=== PATIENT | female | born 1985 | race Caucasian/White ===

== ENCOUNTER → 2020-07-07 13:56 | Outpatient (REF) | payer OTHER, SELFPAY | LOC: HO.SL 13:56 | PROVIDERS: PCP Internal Medicine; Visit Provider Internal Medicine | DX: G47.10 Hypersomnia, unspecified (principal); R06.83 Snoring; R40.0 Somnolence | CPT/HCPCS: 95806 ==

== ENCOUNTER → 2020-08-19 07:55 | Outpatient (BNVA) | payer OTHER, SELFPAY | PROVIDERS: PCP Internal Medicine; Referring Provider Internal Medicine; Visit Provider Internal Medicine | DX: Z76.89 Persons encountering health services in other specified circumstances (principal) ==

== ENCOUNTER 2020-08-21 09:17 | Outpatient (REF) | payer OTHER, SELFPAY ==
[2020-08-21 10:38] LABS: Alanine Aminotransferase 30 U/L (0-31); Albumin Level 4.2 g/dL (3.5-5.0); Alkaline Phosphatase 65 U/L (39-117); Anion Gap 16 (12-20); Aspartate Amino Transferase 26 U/L (5-31); Bilirubin Total 0.8 mg/dL (0.0-1.0); Blood Urea Nitrogen 17 mg/dL (9-16); Calcium 9.1 mg/dL (8.4-10.2); Carbon Dioxide 25 mmol/L (22-29); Chloride 105 mmol/L (96-108); Cholesterol 194 mg/dL; Estimated Glomerular Filt Rate > 60; Glucose Fasting 182 mg/dL (60-99); HDL Cholesterol 36 mg/dL; LDL Cholesterol Calculated 112 mg/dl; Potassium 4.5 mmol/l (3.3-5.1); Sodium 141 mmol/L (135-145); Total Protein 7.8 g/dL (6.5-8.0); Triglycerides 233 mg/dL
== END 2020-08-21 09:18 | disposition home or self-care (01) ==
LOC: HO.LAB 09:17
PROVIDERS: Absent Provider Internal Medicine; PCP Internal Medicine; Visit Provider Internal Medicine
DX: E11.9 Type 2 diabetes mellitus without complications (principal)
CPT/HCPCS: 36415; 80053; 80061

== ENCOUNTER 2020-08-25 08:28 | Outpatient (REF) | payer OTHER, SELFPAY ==
[2020-08-25 09:42] LABS: Estimated Average Glucose 174 mg/dL; Hemoglobin A1c % 7.7 %
[2020-08-25 09:50] LABS: Alanine Aminotransferase 38 U/L (0-31); Albumin Level 4.2 g/dL (3.5-5.0); Alkaline Phosphatase 60 U/L (39-117); Anion Gap 14 (12-20); Aspartate Amino Transferase 32 U/L (5-31); Bilirubin Total 0.5 mg/dL (0.0-1.0); Blood Urea Nitrogen 15 mg/dL (9-16); Calcium 9.5 mg/dL (8.4-10.2); Carbon Dioxide 28 mmol/L (22-29); Chloride 100 mmol/L (96-108); Estimated Glomerular Filt Rate > 60; Glucose Random 177 mg/dL (60-115); Potassium 4.7 mmol/l (3.3-5.1); Sodium 137 mmol/L (135-145); Total Protein 8.1 g/dL (6.5-8.0)
[2020-08-25 10:07] LABS: Free T4 (Free Thyroxine) 0.92 ng/dL (0.71-1.85); HCG Quantitative < 2 mIU/mL; Thyroid Stimulating Hormone 3.33 uIU/mL (0.32-4.0); Vitamin D 25-OH Total 7.9 ng/mL (>30)
[2020-08-26 11:27] LABS: DHEA Sulfate 88 mcg/dL (23-266); Sex Hormone Binding Globulin 47 nmol/L (17-124)
[2020-08-26 20:08] LABS: Follicle Stimulating Hormone 6.3 mIU/mL; Lutenizing Hormone 19.1 mIU/mL; Prolactin 12.7 ng/mL
[2020-08-26 23:18] LABS: Adrenocorticotropic Hormone 25 pg/mL (6-50)
[2020-08-28 21:37] LABS: IGF-1 (Somatomedin C) 80 ng/mL (53-331); IGF-1 Z Score (Female) -1.2 SD (-2.0 - +2.0)
[2020-08-28 21:58] LABS: Estradiol Ultra Sensitive 221 pg/mL
[2020-08-29 10:33] LABS: Testosterone, Free 5.8 pg/mL (0.1-6.4); Testosterone, Total 48 ng/dL (2-45)
[2020-08-30 00:57] LABS: Androstenedione 182 ng/dL
[2020-09-03 15:48] LABS: Estradiol Free 4.12 pg/mL; Estradiol, Ultrasensitive 219 pg/mL
== END 2020-08-25 08:29 | disposition home or self-care (01) ==
LOC: HO.LAB 08:28
PROVIDERS: PCP Internal Medicine; Visit Provider Internal Medicine
DX: N91.2 Amenorrhea, unspecified (principal); E55.9 Vitamin D deficiency, unspecified
CPT/HCPCS: 36415; 80053; 82024; 82157; 82306; 82533; 82627; 82670; 83001; 83002; 83036; 83498; 84146; 84270; 84305; 84402; 84403; 84439; 84443; 84702

== ENCOUNTER → 2020-09-03 13:54 | Outpatient (BNVA) | payer OTHER, SELFPAY | PROVIDERS: PCP Internal Medicine; Visit Provider Physician Assistant ==

== ENCOUNTER → 2020-09-09 08:18 | Outpatient (BNVA) | payer OTHER, SELFPAY | PROVIDERS: PCP Internal Medicine; Visit Provider Surgery | DX: Z76.89 Persons encountering health services in other specified circumstances (principal) ==

== ENCOUNTER 2020-09-14 08:51 | Outpatient (REF) | payer OTHER, SELFPAY ==
--- NOTE | 2020-09-14 09:12 | ECG_ITS ---
Test Reason : TYPE II DM Blood Pressure : / mmHG Vent. Rate : 056 BPM Atrial Rate : 056 BPM P-R Int : 116 ms QRS Dur : 090 ms QT Int : 436 ms P-R-T Axes : 009 010 013 degrees QTc Int : 420 ms Sinus bradycardia Otherwise normal ECG No previous ECGs available Referred By: Omar Castillo Electronically Signed By:KAREN GODOY MD
--- NOTE | 2020-09-14 09:34 | XR_ITS ---
EXAMINATION: XR CHEST CLINICAL INFORMATION: Diabetes COMPARISON: None TECHNIQUE: 2 views of the chest were obtained. FINDINGS: No significant abnormality is noted involving the heart, lungs, mediastinum, bony thorax or soft tissues. XR/XR chest 2V IMPRESSION: Unremarkable examination.
[2020-09-14 09:36] LABS: MANUAL DIFF FLAG NO
[2020-09-14 09:41] LABS: Basophils Percent Auto 0.5 % (0-2); Eosinophils Absolute Auto 0.3 X10*3/uL (0.0-0.4); Eosinophils Percent Auto 3.9 % (0-4); Hematocrit 42.9 % (37-47); Hemoglobin 15.1 g/dl (12.0-16.0); Imm Gran Abs Auto 0.01 X10*3/uL (0.00-0.03); Imm Gran Pct Auto 0.2 % (0.0-0.4); Lymphocytes Absolute Auto 2.6 X10*3/uL (1.2-4.9); Lymphocytes Percent Auto 39.9 % (20-40); Mean Corpuscular HGB Conc 35.2 g/dl (31.0-35.0); Mean Corpuscular Hemoglobin 31.7 pg (27.0-33.0); Mean Corpuscular Volume 89.9 fL (80-98); Monocytes Absolute Auto 0.3 X10*3/uL (0.1-1.2); Monocytes Percent Auto 4.2 % (2-11); Neutrophils Absolute Auto 3.4 X10*3/uL (2.0-8.3); Neutrophils Percent Auto 51.3 % (45-73); Platelet Count 315 X10*3/uL (160-400); Red Blood Count 4.77 X10*6/uL (4.20-5.50); Red Cell Distribution Width 12.5 % (11.0-16.0); White Blood Count 6.6 X10*3/uL (4.8-10.8)
[2020-09-14 10:03] LABS: Alanine Aminotransferase 31 U/L (0-31); Albumin Level 4.1 g/dL (3.5-5.0); Alkaline Phosphatase 63 U/L (39-117); Anion Gap 12 (12-20); Aspartate Amino Transferase 31 U/L (5-31); Bilirubin Total 0.6 mg/dL (0.0-1.0); Blood Urea Nitrogen 15 mg/dL (9-16); Calcium 9.3 mg/dL (8.4-10.2); Carbon Dioxide 25 mmol/L (22-29); Chloride 105 mmol/L (96-108); Cholesterol 191 mg/dL; Estimated Glomerular Filt Rate > 60; Glucose Random 154 mg/dL (60-115); HDL Cholesterol 38 mg/dL; LDL Cholesterol Calculated 109 mg/dl; Potassium 4.4 mmol/L (3.3-5.1); Sodium 138 mmol/L (135-145); Total Protein 7.9 g/dL (6.5-8.0); Triglycerides 220 mg/dL
[2020-09-14 10:26] LABS: Ferritin 60 ng/mL (10-122); TSH reflex Free T4 2.06 uIU/mL (0.32-4.0)
[2020-09-14 11:43] LABS: Estimated Average Glucose 163 mg/dL; Hemoglobin A1c % 7.3 %
[2020-09-14 18:10] LABS: Folate 5.3 ng/mL (> or = 4.0); Vitamin B12 495 pg/mL (200-900)
[2020-09-15 10:27] LABS: H Pylori Breath Test DETECTED (NOT DETECTED)
[2020-09-15 15:32] LABS: Calcium (PTHI) 9.5 mg/dL (8.6-10.2); PTHI 58 pg/mL (14-64)
[2020-09-15 18:42] LABS: Insulin Level Total 21.2 uIU/mL
[2020-09-16 22:37] LABS: Zinc 94 mcg/dL (60-130)
[2020-09-18 03:43] LABS: Vitamin A 28 mcg/dL (38-98)
[2020-09-18 11:38] LABS: Vitamin B1 <6 nmol/L (8-30)
== END 2020-09-14 08:52 | disposition home or self-care (01) ==
LOC: HO.LAB 08:51
PROVIDERS: PCP Internal Medicine; Visit Provider Surgery
DX: E11.9 Type 2 diabetes mellitus without complications (principal); E28.2 Polycystic ovarian syndrome; R61 Generalized hyperhidrosis; N91.2 Amenorrhea, unspecified; L68.0 Hirsutism; E66.9 Obesity, unspecified; Z68.36 Body mass index [BMI] 36.0-36.9, adult
CPT/HCPCS: 36415; 71046; 80053; 80061; 82306; 82607; 82728; 82746; 83013; 83036; 83525; 83970; 84425; 84443; 84590; 84630; 85025; 86140; 93005; 99211

== ENCOUNTER → 2020-10-07 08:13 | Outpatient (BNVA) | payer OTHER, SELFPAY | PROVIDERS: PCP Internal Medicine; Visit Provider Surgery ==

== ENCOUNTER → 2020-10-12 07:39 | Outpatient (BNVA) | payer OTHER, SELFPAY | PROVIDERS: PCP Internal Medicine; Visit Provider Internal Medicine ==

== ENCOUNTER 2020-10-13 06:24 | Outpatient (REF) | payer OTHER, SELFPAY ==
--- NOTE | ~2020-10-13 | FL_ITS ---
EXAMINATION: XR GI SERIES CLINICAL INFORMATION: Obesity. Pre-op evaluation. COMPARISON: None TECHNIQUE: Routine upper GI air-contrast study was performed. FINDINGS: Following oral administration of thick barium and effervescent granules, there is normal propagation of bolus from the oral cavity through the pharynx, esophagus into stomach without any evidence of obstruction, narrowing, or stricture. There is mucosal hypertrophy involving the oropharynx likely secondary to inflammatory process. Correlate clinically. On placing the patient supine and prone lying, the course, caliber and peristalsis of the stomach, duodenal bulb and the sweep is normal. There is a large gastroesophageal reflux without hiatal hernia. FLUOROSCOPY TIME: 1.9 minutes DOSE AREA PRODUCT: 37.602 uGy-m2 (microgray-meter squared) FL/FL upper GI series IMPRESSION: 1. Large gastroesophageal reflux without hiatal hernia. 2. Thick mucosal folds in the oropharynx, question inflammatory process.
--- NOTE | ~2020-10-13 | US_ITS ---
EXAMINATION: US COMPLETE ABDOMEN WITH LIVER ELASTOGRAPHY CLINICAL INFORMATION: Diabetes COMPARISON: None. TECHNIQUE: Real-time imaging of the abdominal viscera. Noninvasive ultrasound liver fibrosis assessment is performed using Kofi ElastPQ point quantification shear wave elastography (pSWE) with a C5-2 MHz transducer. Multiple elastography samples are obtained. FINDINGS: PANCREAS: Not visualized due to bowel gas. ABDOMINAL AORTA: Proximal and mid abdominal aorta are not well visualized due to bowel gas. The distal abdominal aorta is normal in caliber. INFERIOR VENA CAVA: Visualized portions are normal. LIVER: Liver echotexture is increased. The liver is normal in contour. The liver is normal in size. There is a hypoechoic area adjacent to the gallbladder, a characteristic location of focal fatty sparing. No other focal lesion or intrahepatic biliary duct dilatation. The right lobe measures 16 cm in length. The left lobe measures 9 cm in length. Portal flow is normal/hepatopedal Shear wave liver elastography median stiffness is 1.17 m/s (reference: normal median stiffness is 1.3 m/s or less). IQR/median stiffness to assess sampling precision is 0.15 (reference: good quality data set is IQR/median stiffness of 0.15 or less). GALLBLADDER: Normal. The gallbladder is physiologically distended without evidence of stones, sludge, polyps, wall thickening or pericholecystic fluid. COMMON BILE DUCT: Normal in caliber measuring 0.5 cm in diameter. RIGHT KIDNEY: Normal. No hydronephrosis. No renal calculi or focal parenchymal lesions. The kidney measures 12.6 cm in maximum dimension. LEFT KIDNEY: Normal. No hydronephrosis. No renal calculi or focal parenchymal lesions. The kidney measures 12.6 cm in maximum dimension. SPLEEN: Normal. The spleen measures 11.7 cm in maximum dimension. FREE FLUID: None. US/US abdomen comp w elastography IMPRESSION: 1. Impression: Echogenic liver suggestive of fatty infiltration. Limited visualization of the pancreas and aorta. 2. Liver elastography: Normal. REFERENCE: Society of Radiologists in Ultrasound Liver Stiffness Thresholds (2020): LIVER STIFFNESS THRESHOLDS: *Liver Stiffness equal or less than 1.3 m/s: High probability of being normal. *Liver Stiffness less than 1.7 m/s: In the absence of other known clinical signs, rules out compensated advanced chronic liver disease. *Liver Stiffness 1.7-2.1 m/s: Suggestive of compensated advanced chronic liver disease but need further test for confirmation. *Liver Stiffness over 2.1 m/s: Rules in compensated advanced chronic liver disease. *Liver Stiffness over 2.4 m/s: Suggestive of clinically significant portal hypertension. QUALITY OF DATA SET: *IQR/Median value equal or less than 0.15 implies a quality data set. *IQR/Median value over 0.15 implies a poor quality data set. SIGNIFICANT CHANGE FROM PRIOR EXAM: Significant change if liver stiffness measurement is 10% or greater from prior exam. OTHER CONSIDERATIONS: The stage of liver fibrosis may be overestimated in the setting of acute hepatitis, liver inflammation, elevated liver function tests, hepatic vascular congestion, obstructive cholestasis, non-fasting state, and infiltrative diseases such as amyloidosis and lymphoma. In some patients with NAFLD, the liver stiffness thresholds for compensated advanced chronic liver disease may be lower. In causes other than viral hepatitis and NAFLD, liver stiffness thresholds are not well established.
[2020-10-14 05:26] LABS: Sex Hormone Binding Globulin 57 nmol/L (17-124)
[2020-10-17 13:22] LABS: Testosterone, Free 1.4 pg/mL (0.1-6.4); Testosterone, Total 18 ng/dL (2-45)
== END 2020-10-13 06:25 | disposition home or self-care (01) ==
LOC: HO.US 06:24
PROVIDERS: Absent Provider Internal Medicine; PCP Internal Medicine; Visit Provider Surgery
DX: Z01.818 Encounter for other preprocedural examination (principal); E66.01 Morbid (severe) obesity due to excess calories; K21.9 Gastro-esophageal reflux disease without esophagitis; E11.9 Type 2 diabetes mellitus without complications
CPT/HCPCS: 36415; 74240; 76705; 76981; 84270; 84402; 84403

== ENCOUNTER → 2020-10-26 08:22 | Outpatient (BNVA) | payer OTHER, SELFPAY | PROVIDERS: PCP Internal Medicine; Visit Provider Surgery ==

== ENCOUNTER 2020-10-29 13:47 | Outpatient (REF) | payer OTHER, SELFPAY ==
[2020-10-30 11:57] LABS: H Pylori Breath Test NOT DETECTED (NOT DETECTED)
== END 2020-10-29 13:48 | disposition home or self-care (01) ==
LOC: HO.LNP 13:47
PROVIDERS: PCP Internal Medicine; Visit Provider Surgery
DX: E11.9 Type 2 diabetes mellitus without complications (principal); E28.2 Polycystic ovarian syndrome; R61 Generalized hyperhidrosis; L68.0 Hirsutism; E66.9 Obesity, unspecified; Z68.36 Body mass index [BMI] 36.0-36.9, adult
CPT/HCPCS: 83013

== ENCOUNTER → 2020-11-10 08:05 | Outpatient (BNVA) | payer OTHER, SELFPAY | PROVIDERS: PCP Internal Medicine; Visit Provider Dietitian, Registered ==

== ENCOUNTER → 2020-11-18 08:13 | Outpatient (BNVA) | payer OTHER, SELFPAY | PROVIDERS: PCP Internal Medicine; Visit Provider Surgery ==

== ENCOUNTER → 2020-11-26 09:48 | Outpatient (BNVA) | payer OTHER, SELFPAY | PROVIDERS: PCP Internal Medicine; Visit Provider Physician Assistant ==

== ENCOUNTER → 2020-11-27 08:23 | Outpatient (BNVA) | payer OTHER, SELFPAY | PROVIDERS: PCP Internal Medicine; Visit Provider Surgery ==

== ENCOUNTER 2020-12-05 06:52 | Outpatient (REF) | payer OTHER, SELFPAY ==
[2020-12-05 07:50] LABS: MANUAL DIFF FLAG NO
[2020-12-05 07:54] LABS: Basophils Percent Auto 0.5 % (0-2); Eosinophils Absolute Auto 0.2 X10*3/uL (0.0-0.4); Eosinophils Percent Auto 2.7 % (0-4); Hematocrit 43.7 % (37-47); Hemoglobin 14.1 g/dl (12.0-16.0); Imm Gran Abs Auto 0.01 X10*3/uL (0.00-0.03); Imm Gran Pct Auto 0.2 % (0.0-0.4); Lymphocytes Absolute Auto 2.2 X10*3/uL (1.2-4.9); Lymphocytes Percent Auto 39.5 % (20-40); Mean Corpuscular HGB Conc 32.3 g/dl (31.0-35.0); Mean Corpuscular Hemoglobin 28.9 pg (27.0-33.0); Mean Corpuscular Volume 89.5 fL (80-98); Mean Platelet Volume 9.7 fL (9.4-12.3); Monocytes Absolute Auto 0.4 X10*3/uL (0.1-1.2); Monocytes Percent Auto 6.3 % (2-11); Neutrophils Absolute Auto 2.9 X10*3/uL (2.0-8.3); Neutrophils Percent Auto 50.8 % (45-73); Platelet Count 298 X10*3/uL (160-400); Red Blood Count 4.88 X10*6/uL (4.20-5.50); Red Cell Distribution Width 12.3 % (11.0-16.0); White Blood Count 5.6 X10*3/uL (4.8-10.8)
[2020-12-05 08:19] LABS: Alanine Aminotransferase 19 U/L (0-31); Albumin Level 4.3 g/dL (3.5-5.0); Alkaline Phosphatase 65 U/L (39-117); Anion Gap 13 (12-20); Aspartate Amino Transferase 25 U/L (5-31); Bilirubin Total 1.3 mg/dL (0.0-1.0); Blood Urea Nitrogen 14 mg/dL (9-16); C Reactive Protein 1.71 mg/dL (< or = 0.50); Calcium 9.9 mg/dL (8.4-10.2); Carbon Dioxide 28 mmol/L (22-29); Chloride 102 mmol/L (96-108); Cholesterol 190 mg/dL; Estimated Glomerular Filt Rate > 60; Glucose Random 89 mg/dL (60-115); HDL Cholesterol 39 mg/dL; INTERNATIONAL NORM RATIO 1.2 (0.9-1.1); LDL Cholesterol Calculated 131 mg/dl; Partial Thromboplastin Time 33.7 SEC (24.1-38.0); Potassium 4.3 mmol/L (3.3-5.1); Prothrombin Time 13.8 SEC (10.8-13.0); Sodium 139 mmol/L (135-145); Total Protein 7.8 g/dL (6.5-8.0); Triglycerides 102 mg/dL
[2020-12-05 08:24] LABS: Estimated Average Glucose 103 mg/dL; Hemoglobin A1c % 5.2 %
[2020-12-05 08:41] LABS: TSH reflex Free T4 2.18 uIU/mL (0.32-4.0)
[2020-12-07 17:22] LABS: Insulin Level Total 13.8 uIU/mL
== END 2020-12-05 06:53 | disposition home or self-care (01) ==
LOC: HO.LAB 06:52
PROVIDERS: PCP Internal Medicine; Visit Provider Surgery
DX: E11.65 Type 2 diabetes mellitus with hyperglycemia (principal); E66.01 Morbid (severe) obesity due to excess calories; Z68.39 Body mass index [BMI] 39.0-39.9, adult
CPT/HCPCS: 36415; 80053; 80061; 83036; 83525; 84443; 85025; 85610; 85730; 86140

== ENCOUNTER 2020-12-08 06:22 | Inpatient (IN) | payer OTHER, SELFPAY ==
[2020-12-03 09:34] VITALS: BMI 34.6
--- NOTE | 2020-12-07 23:30 | MHC.SHP ---
Pre-Procedural Eval Section A The patient is an INPATIENT: Yes The History & Physical has been completed within 30 days and I have reviewed it.: Yes Section B Chief Complaint: obesity Details of Present Illness: Obesity Relevant Family History (Specify if Yes): No Relevant Social History: None Present Medications: see Short Stay Collaborative assessment Medical History: No relevant PMH History of Previous Operations: No relevant previous surgery Allergies: Allergies Allergy/AdvReac Type Severity Reaction Status Date / Time No Known Allergies Allergy Verified 12/03/20 09:26 Review of Systems Sugical H&P ROS: Negative: Constitution, Cardiovascular, Respiratory, Neurological, Psychiatric, Hem-Onc, Allergic/Immunologic, Gastrointestinal, Genitourinary, Musculoskeletal, Integumentary, Endocrine and Eyes/Ears/Nose/Throat Exam Surgical H&P Exam: Normal: HEENT, Normal: Heart, Normal: Lungs, Normal: Extremities, Normal: Abdomen, Normal: Skin and Normal: Neurological Plan Diagnosis/Plan: Unchanged I have reviewed the history and physical and performed a pertinent physical examination on my patient. No changes have occurred unless specified.
[2020-12-08] VITALS (14 sets, daily range): BP systolic 105–141; BP diastolic 71–91; PULSE 64–85; RESP 10–20; TEMP 36.1–36.6; O2SAT 93–100
--- NOTE | ~2020-12-08 | FL_ITS ---
EXAMINATION: XR GI SERIES CLINICAL INFORMATION: Status post gastric bypass. COMPARISON: None TECHNIQUE: Single contrast Gastrografin given to the patient to evaluate the postsurgical site, status post gastric bypass. FINDINGS: Multiple surgical clips present at the expected gastroesophageal junction. There is normal contrast flow through the lower esophagus into small bowel loops at the bypass site. No leakage of contrast or obstructive changes identified. FLUOROSCOPY TIME: 1 minute DOSE: 78.43 mGy FL/FL upper GI series IMPRESSION: No contrast leakage or obstruction of flow of contrast at the surgical site.
[2020-12-08 06:46] LABS: UPreg QC Valid YES; Urine Pregnancy NEGATIVE (NEGATIVE)
[2020-12-08 06:50] LABS: Glucose, Whole Blood 102 mg/dL (60-115)
[2020-12-08 07:00] LABS: COVID-19 Test Negative (Negative); IDNOW Serial# 9DD0AD1C
[2020-12-08] MEDS: Lactated Ringers 1,000 ML 999 ML IV (07:01)
--- NOTE | 2020-12-08 07:01 | P.CONAN_ITS ---
HPI - Anesthesia Eval Consult details Narrative: 35 y/o for GASTRIC BYPASS AND ALL RELATED PROCEDURES FORMERLY [facility] Active Problems Active Problems: All Active Problems (Updated 12/03/20 @ 09:26 by Catherine villatoro) BMI 36.0-36.9,adult (Acute) Vitamin B1 deficiency (Acute) Vitamin A deficiency (Acute) Vitamin B12 deficiency (Acute) BMI over 35 (Acute) H. pylori infection (Acute) Depressive disorder due to separate medical condition (Acute) Depression, major, single episode, mild (Acute) BMI over 35 (Acute) GERD (gastroesophageal reflux disease) (Acute) Type 2 diabetes mellitus (Acute) Obesity (Acute) Vitamin D deficiency (Acute) Hirsutism (Acute) Amenorrhea (Acute) Hyperhidrosis (Acute) Snoring (Acute) PCOS (polycystic ovarian syndrome) (Acute) Diabetes mellitus (Acute) Past Medical History Medical History Amenorrhea Diabetes mellitus GERD (gastroesophageal reflux disease) Hirsutism Hyperhidrosis Obesity PCOS (polycystic ovarian syndrome) Snoring Type 2 diabetes mellitus Vitamin D deficiency Family History Family History Mother Diabetes Father No problems noted. Maternal Grandmother Diabetes Surgical History Surgical History History of cleft palate Social History Social History Household Members Other:: Roommates Are you a primary health care aide to a significant other at home: No Do you presently have visiting nurse or other home services: No Alcohol intake: never Smoking Status: Former smoker Packs Per Day: 1 Years Smoked: 10 Smoking Quit Date: 12 years ago Use of substances other than those prescribed or required for medical reasons: No Have you been hit, kicked, punched, or otherwise hurt by someone within the past year? If so, by whom?: No Advance Directives: No Advance Directives Information Provided: No Advance Directives on File: No Recently lost weight without trying: No Meds Allergies Allergy/AdvReac Type Severity Reaction Status Date / Time No Known Allergies Allergy Verified 12/03/20 09:26 Active Medications: Current Medications Generic Name Dose Route Start Last Admin Trade Name Freq PRN Reason Stop Dose Admin Lactated Ringer's 1,000 mls @ 50 mls/hr 12/08/20 07:00 Lr IV .Q20H JOHN Acetaminophen 1,000 mg in 100 mls @ 400 mls/hr 12/08/20 07:00 Ofirmev IV 12/08/20 07:14 PREOP ONE Exam Exam Date and Time: December 08, 2020 0701 Height,Weight and Vital Signs: Height 5 ft 5 in Weight 94.347 kg Last Vital Signs Temp 97.9 F 12/08/20 06:40 Pulse 73 12/08/20 06:40 Resp 16 12/08/20 06:40 BP 111/71 12/08/20 06:40 Pulse Ox 96 12/08/20 06:40 Pertinent Lab Results Pertinent Lab Results: Laboratory Tests 12/05/20 12/08/20 12/08/20 07:05 06:14 06:44 POC Glucose 102 Urine Test NEGATIVE Blood Type A Negative Antibody Screen NEGATIVE Airway Mallampati Class: III TM Dist: >3cm Neck ROM: Full Loose/Missing/Broken Teeth: Yes Heart: [id number] Lungs: cta b/l Assessment and Plan Assessment Anesthesia Assessment: Anesthesia Plan Discussed, PAT Visit and Chart Reviewed Final Anesthetic Review NPO: Yes ASA Class: III Final Preanesthetic Review: No Changes in Pt Med Stat, Meds/Allgs Chart Reviewed, Consent Obtained/Reviewed and Anes Risks/Benef Reviewed Patient Risk: Intermediate Procedure Risk: Low Assessment/Block/Sedation in SS: Assess/Block/Sedation-SS Anesthetic Plan Anesthetic Plan: GA and Agree w/ Assess. and Plan Disposition: Standard PACU
[2020-12-08] MEDS: Lactated Ringers 1,000 ML 50 ML IV (07:02)
--- NOTE | 2020-12-08 11:58 | P.BOP_ITS ---
Brief Operative Note Date of Service: 12/08/20 Pre-op diagnosis: Severe obesity with comorbidities (see below) Post-op diagnosis: same (& congenital abdominal adhesions) Procedure: PROCEDURE: Upper endoscopy, extensive laparoscopic lysis of adhesions and laparoscopic Shelby-en-Y gastric bypass with a Shelby limb of 160cm INDICATIONS: This is a 35 year-old female with a BMI of 37.6 kg/m2 and associated comorbid conditions as described previously. After appropriate workup was performed, the patient was electively scheduled for laparoscopic, possibly open, gastric bypass. The risks and complications of the procedure were discussed with the patient in advance, particularly the possibility of ; pulmonary embolism; anastomotic leak; bleeding; bowel obstruction; cardiac, pulmonary, or renal complications; as well as long-term problems such as insufficient weight loss, vitamin deficiency, anastomotic strictures, or ulcers. The patient understood all the risks, and was in agreement to proceed with surgery. DESCRIPTION OF PROCEDURE: After informed consent was obtained from the patient, the patient was given preoperative antibiotics, and was transferred to the operating room. After successful induction of general anesthesia, a Lion catheter and pneumatic compressive devices were placed on both lower extremities. An upper endoscopy was performed next. The oropharynx and esophagus appeared to be within normal limits. There was no diaphragmatic hernia present consistent with the findings of the preoperative upper GI. The stomach was entered. Then after all fluid and air were suctioned and the stomach was fully decompressed, the scope was withdrawn and secured in the mid esophagus. The patient was then prepped and draped in the usual sterile manner, and abdominal access was established at the right upper quadrant with the Thomas technique. A 12 mm blunt port was inserted, and the abdomen was insufflated with CO2 to a pressure of 15 mmHg. Under direct visualization, additional ports were placed, specifically a 5 and a 12 mm Versi-Step port, to the left and right of the umbilicus, two 5 mm ports to the left upper quadrant, and a 5 mm Versi-Step port to the right upper quadrant. 1% lidocaine was used preemptively to infiltrate the fascial defects of all port sites. Following that, the patient was placed in a steep reverse Trendelenburg position. An additional 5 mm port was placed to the right flank for the Mediflex retractor that was used to retract the left lobe of the liver. The pars flaccida was opened with the ultrasonic device and the lesser sac was entered. The angle of His was opened with the ultrasonic device the fundus of the stomach from any diaphragmatic and splenic attachments. There were extensive congenital adhesions between the pancreas and posterior gastric wall. Those were lysed completely with the ultrasonic device. Adhesiolysis took approximately 45 min to complete. The lesser omentum was divided with an Endo HELIO-45 articulating martinez load (AEON). I opened the angle of His with the ultrasonic device, the fundus of the stomach from any diaphragmatic or splenic attachments. After a window was established there, the stomach was divided transversely with an Endo HELIO-45 articulating purple load (AEON). Every effort was made that the gastric pouch had a tubular and not spherical shape by limiting the vertical division of the stomach with the first staple load at the lesser curvature. A second articulating Endo HELIO-45 purple load (AEON) was fired next towards the angle of His. The staple line of the gastric remnant was then reinforced with a running 2-0 Surgidac suture using the Endo Stitch device. The retrogastric space was dissected after the first two staple loads were fired. The retrogastric space was opened in the avascular plane medially to the splenic artery and laterally to the left katie all the way to the angle of His. The gastric pouch was completed with two additional Endo HELIO-45 and 60 articulating purple loads (AEON). The remaining staple line of the gastric remnant was also reinforced with a running 2-0 Surgidac suture using the Endo Stitch device. The staple line of the gastric pouch was reinforced with Hemoclips. I then opened the gastrocolic ligament between the transverse colon and the greater curvature of the stomach with the ultrasonic device to enter the lesser sac and facilitate delivery of the Shelby limb through the lesser sac at a later step of the procedure. The patient was then placed in supine position, and after we retracted the transverse colon and the omentum cephalad, we identified the ligament of Treitz. I counted 40 cm from the ligament of Treitz, and the small bowel and the mesentery were divided with an Endo HELIO-60 white load. Using the ultrasonic device, we opened the peritoneum at the root of the mesentery further to gain extra mobility. A clip was used to juan j the proximal end of the divided bowel, the bilio-pancreatic end, which was run back to the ligament of Treitz to confirm that I had marked the correct side and we had done so. We then developed the mesocolic window slightly to the left and superior to the ligament of Treitz using the ultrasonic device. The apex of the Shelby limb was identified. Following that, we grasped the apex of the Shelby limb with an articulating bowel grasper, and after we made sure there was no twisting of the mesentery, it was delivered in a retrocolic, retrogastric fashion through the mesocolic window which we had previously made. Following that, we noted there was no tension between the gastric pouch and the Shelby limb. Enterotomies were made at the apex of the pouch and the Shelby limb, and the gastro-jejunostomy was made with an Endo HELIO-45 mckenzie load ([employer]( measured to be 4.5 cm in diameter. The enterotomy was closed using the Endo Stitch device in one layer of running 2-0 Polysorb suture in a Ethel fashion starting from each corner of the enterotomy and tying the two ends together in the center of the enterotomy. The Shelby limb was clamped with a bowel clamp approximately 15 cm from the gastro-jejunostomy, and a leak test was performed by submerging the anastomosis in saline and insufflating air off the scope into the pouch. There was no narrowing of the GE junction. There was no air leak during the test. There was no significant ischemia of the mucosa of the gastric pouch or Shelby limb. There was no bleeding from the suture or staple lines of the anastomosis, as well as the staple line of the gastric pouch which was clearly seen in its entirety. In addition, the anastomosis was patent, and we easily advanced the scope into the proximal Shelby limb. With the scope pulled back at the esophagus, we reinforced the anastomosis circumferentially with multiple interrupted 2-0 Polysorb sutures in a Lembert type fashion using the Endo Stitch device. At that point, we pulled the endoscope back to the esophagus while we were decompressing the Shelby limb and gastric pouch from any remaining air. At that point, the patient was placed in supine position, and after I reduced the Shelby limb back into the abdomen, I counted 60 cm from the gastro- jejunostomy. An enterotomy was made there with the ultrasonic device. After a similar enterotomy was made at the apex of the bilio-pancreatic limb, the jejuno-jejunostomy was made with an Endo HELIO-60 white load from [employer]. The enterotomy was closed with another Endo HELIO-60 white load after appropriate alignment with four interrupted 2-0 Surgidac sutures. Two anti-obstruction sutures were placed next between the staple line of the bilio-pancreatic limb and the mesentery of the Shelby limb distal from the anastomosis to prevent kinking of the anastomosis. We then closed the small bowel mesenteric defect in a running fashion using a running 2-0 Surgidac suture using the Endo Stitch device. I checked the anastomosis at the end. The jejuno-jejunostomy was patent. The Shelby limb was not narrowed. The staple lines were intact, viable, without evidence of any ischemia, bleeding, or any open areas, and the entire anastomosis was sitting nicely without tension, narrowing, or kinking. I then closed the Manning's defect with a two interrupted 2-0 Surgidac suture in a U-type fashion and then the mesocolic defect with four interrupted 2-0 Sofsilk sutures in a U-type fashion. The Shelby limb was clamped 20 cm inferior to the mesocolic window and another endoscopy was performed. We could easily pass the gastroscope through the gastro-jejunostomy and mesocolic window without any narrowing, kinking, or evidence of bleeding or ischemia. At that point the gastroscope was withdrawn from the patient?s mouth while we were decompressing the bowel and the stomach from any remaining air. I ran back the Shelby limb from the mesocolic window to the jejuno-jejunostomy which appeared to be normal without any twisting or kinking. All blood clots were suctioned. We carefully positioned the transverse colon epiploic appendages to the root of the small bowel mesentery to prevent any adhesions between them and the anastomosis that could lead to an internal hernia. I then placed the patient back in a steep reverse Trendelenburg position. We looked into the lesser sac to see how the Shelby limb was situating and it was situating well. There was no bleeding from the suture lines of the remnant, angle of His, and gastric pouch, as well as from the mesentery of the Shelby limb. At this point we placed a 10 mm JENNI drain underneath the gastro-jejunostomy and we secured the skin level with an #0 Sofsilk suture. The Mediflex retractor was removed, and the undersurface of the liver was inspected and there was no bleeding. The patient was placed in supine position. I closed the fascial defect of the 12 mm periumbilical port site laparoscopically with the EndoClose suture passer device using #1 Polysorb suture and the Thomas port with a figure of eight #0 Polysorb suture. Then 100 cc 0.25 % Marcaine and 10 mg of Dexamethasone were used to infiltrate both fascial closures as well as all skin incisions. At this point, the abdomen was deflated, all ports were removed under direct vision, and no bleeding was noted from any of the port sites. The skin incisions were irrigated with saline and were closed with 4-0 absorbable monofilament sutures. Steri-Strips and OpSites were used to cover all incisions. The patient was extubated and was transferred in stable condition to the recovery room for further care. I was present and performed all ibarra parts of the procedure. Ms. Mercedes was the assistant men's lacrosse coach. There were no residents to assist with this case. Sidney Castillo MD, PhD, FACS Surgeon: Omar Castillo MD Anesthesia: GETA, local and other (TAP ) Library Information Technician: Teresa Mercedes Estimated blood loss (mL): 10 IV fluids (mL): 3,000 Urine output (mL): 150 Pathology: none sent Condition: stable Disposition: PACU
--- NOTE | 2020-12-08 12:08 | PM.PNGS ---
Subjective Subjective Date of Service: 12/09/20 Interval history: Patient has mild incisional pain but was able to ambulate and use the incentive spirometer. Physical Exam Vital Signs: Vital Signs: Last Vital Signs Temp 96.9 F 12/08/20 11:50 Pulse 82 12/08/20 11:50 Resp 10 L 12/08/20 11:50 BP 132/85 12/08/20 11:50 Pulse Ox 100 12/08/20 11:50 Body Mass Index 34.6 GI: Inspection: Yes normal to inspection, Yes incision (clean, dry and intact) and Yes other (JENNI with serosanguinous fluid) Extrem: Right lower extremity: normal to inspection (no calf tenderness) Left lower extremity: normal to inspection (no calf tenderness) Progress Note: A&P Assessment and plan (1) Obesity: Status: Acute (2) BMI 33.0-33.9,adult: Status: Acute (3) S/P gastric bypass: Status: Acute Assessment and Plan: 35 year old female was admitted 12/08/2020 with morbid obesity and comorbidities. Problem 1: s/p laparoscopic Shelby-en-Y gastric bypass and lysis of adhesions Status: Doing well Plan: Check am labs and UGI. If OK, will begin phase 1 bariatric diet. (4) Congenital intra-abdominal adhesions: Status: Acute (5) GERD (gastroesophageal reflux disease): Status: Acute (6) Type 2 diabetes mellitus: Status: Acute (7) PCOS (polycystic ovarian syndrome): Status: Acute (8) Steatosis, liver: Status: Acute (9) Depression: Status: Acute Fall Risk Details Current Medications: Current Medications Generic Name Dose Route Start Last Admin Trade Name Freq PRN Reason Stop Dose Admin Famotidine 20 mg 12/08/20 12:03 Famotidine/Pf 20 Mg/2 Ml Vial IVPUSH BID JOHN Fentanyl 50 mcg 12/08/20 07:00 Fentanyl Citrate/Pf 100 Mcg/2 Ml Vial IVPUSH Q5M PRN Pain, Moderate (Pain Scale 4-6 Hydromorphone HCl 0.5 mg 12/08/20 07:00 Hydromorphone Hcl 0.5 Mg/0.5 Ml Syringe IVPUSH Q5M PRN Pain, Severe (Pain Scale 7-10) Lactated Ringer's 1,000 mls @ 50 mls/hr 12/08/20 07:00 12/08/20 07:02 Lr IV 50 mls/hr .Q20H JOHN Administration Promethazine HCl 12.5 mg/ 50.5 mls @ 202 mls/hr 12/08/20 07:00 Sodium Chloride IV ONCE PRN Nausea and Vomiting Ondansetron HCl 4 mg 12/08/20 07:00 Ondansetron Hcl 4 Mg/2 Ml Vial IVPUSH ONCE PRN Nausea and Vomiting Oxycodone HCl 10 mg 12/08/20 07:00 Oxycodone Hcl Immed Release 5 Mg Tablet PO ONCE PRN Pain, Mild (Pain Scale 1-3) Time Spent With Patient Time: Total time spent is greater than 50% in coordination of care (as documented) at patient's floor/unit and/or counseling patient: Time with patient: less than 15 minutes
--- NOTE | 2020-12-08 12:12 | PM.DS ---
DS: Providers Provider Date of Service: 12/09/20 Date of admission: 12/08/20 06:22 Primary care physician: Sariah Barnett MD DS: Medications Discharge Medications Home Medications: Previous Rx's Medication Instructions Recorded lancets 28 gauge #100 ea 06/15/20 blood sugar diagnostic #50 ea 06/25/20 blood-glucose meter #1 ea 06/25/20 blood-glucose meter #1 ea 06/25/20 lancets 28 gauge #100 ea 06/25/20 ergocalciferol (vitamin D2) 1,250 1,250 mcg PO QWEEK 30 Days #5 cap 09/10/20 mcg (50,000 unit) capsule cholecalciferol (vitamin D3) 125 125 mcg PO DAILY #30 cap 09/28/20 mcg (5,000 unit) capsule mecobalamin (vitamin B12) 1,000 1,000 mcg SUBLINGUAL DAILY #30 tab 09/28/20 mcg disintegrating tablet,sublingual thiamine HCl (vitamin B1) 100 mg 100 mg PO DAILY #30 tab 09/28/20 tablet vitamin A palmitate 15,000 unit 15,000 unit PO .COMPLEX #30 tab 09/28/20 tablet liraglutide 0.6 mg/0.1 mL (18 mg/3 1.8 mg SUBCUT Q24H 30 Days #9 ml 10/19/20 mL) subcutaneous pen injector pen needle, diabetic 32 gauge x #100 ea 10/19/20 1/4 omeprazole 40 mg capsule,delayed 40 mg PO DAILY #30 cap 11/26/20 release ondansetron HCl 4 mg tablet 4 mg PO Q12H #30 tab 11/27/20 pantoprazole 40 mg tablet,delayed 40 mg PO DAILY #30 tab 11/27/20 release polyethylene glycol 3350 17 gram 17 g PO DAILY #14 ea 11/27/20 oral powder packet sucralfate 100 mg/mL oral 10 ml PO BID #400 ml 11/27/20 suspension metformin 1,000 mg tablet 1,000 mg PO BID 30 Days #60 tab 11/30/20 polyethylene glycol 3350 17 17 g PO DAILY #238 g 12/07/20 gram/dose oral powder DS: Summary Time Spent with Patient Time attestation: ADMITTING DIAGNOSIS: Refractory morbid obesity with a BMI of X kg/m2 and associated co-morbid conditions including Type II DM, GERD, PCOS, liver fibrosis DISCHARGE DIAGNOSIS: as above, s/p Shelby en Y gastric bypass Past surgical history: cleft palate PROCEDURE: Ijwzubuc-gqtuos-blpghalmxgl and laparoscopic Shelby-en-Y gastric bypass DISCHARGE SUMMARY: HISTORY OF PRESENT ILLNESS: The patient is a 35 year-old woman with a BMI of 37.5 kg/m2 and associated co-morbidities as described previously. The patient had extensive preoperative work-up, lost 24.6 lbs preoperatively and was electively scheduled for laparoscopic, possible open gastric bypass. Risks and complications of the surgery were discussed with the patient in advance, particularly the possibility of , pulmonary embolism, anastomotic leak, bleeding, bowel injury, GERD, cardiac, renal or pulmonary complications. The patient understood all the risks and was in agreement with the surgical plan. HOSPITAL COURSE: The patient underwent uneventful laparoscopic Shelby-en-Y gastric bypass on the day of admission. Postoperatively, the patient was transferred to the surgical floor on a monitored bed and hemoglobin during the first 8 hours remained stable at mg/dl. The patient was on IV Acetaminophen and dilaudid for pain control. On postoperative day one, the patient was feeling well without nausea, vomiting, fevers, or tachycardia. The patient had some mild incisional pain. The abdomen was soft. UGI showed no leak or obstruction. The patient was started on 1 ounce of water or ice every half hour. The Lion was discontinued. During the first day, the patient did fairly well, having some incisional pain, but able to ambulate adequately and to tolerate liquids well. Since the patient is doing well, we decided that the patient was ready to be discharged. The patient was given instructions to follow-up with me next week and to call my office for any fever over 101, persistent abdominal pain, nausea, vomiting, change in the color of the JENNI fluid, symptoms of DVT such as calf tenderness, or leg swelling, or pulmonary embolism such as chest pain or shortness of breath. The patient was also instructed to drink 40-60 ounces of liquids per day using the 1-ounce cups. The patient was given prescription for Tylenol for pain, Zofran prn for nausea, pantoprazole and carafate. The patient was encouraged to ambulate and use the incentive spirometry. The patient was allowed to shower, but no baths, and encouraged to stay active at home. All of these instructions were given to the patient personally. All questions were answered and the patient understood all instructions. The instructions were given to the patient in print as well. Please send a copy of this report to X Total time spent providing and/or coordinating discharge services: 15 Discharge coordination time: Less than 30 minutes Physical Exam Vital Signs: Vital Signs: Last Vital Signs Temp 96.9 F 12/08/20 11:50 Pulse 82 12/08/20 11:50 Resp 10 L 12/08/20 11:50 BP 132/85 12/08/20 11:50 Pulse Ox 100 12/08/20 11:50 Body Mass Index 34.6 DS: Data Data Completed and Pending Labs on day of discharge: Laboratory Results - last 24 hr 12/08/20 12/08/20 12/08/20 06:14 06:14 06:44 POC Glucose 102 Urine Test NEGATIVE COVID-19 ([place]) Negative COVID-19 Clin Com See Note Discharge Plan Discharge Anticipated Discharge Date/Time: 12/09/20 12:03 Patient Disposition: Home, Self-Care Discharge Diagnosis: s/p gastric bypass Referrals: Sariah Price MD [Primary Care Provider] - 1 Week Discharge Medications: Continued (DME) FreeStyle Lite Strips Strip See Rx Instructions .ROUTE .MEDSUPPLY Qty: 50 RF: 11 (DME) blood-glucose meter [FreeStyle [place] Lite] Kit See Rx Instructions .ROUTE .MEDSUPPLY Qty: 1 RF: 0 (DME) lancets [FreeStyle Lancets] 28 gauge misc See Rx Instructions .ROUTE .MEDSUPPLY Qty: 100 RF: 0 (DME) pen needle, diabetic [BD Ultra-Fine Micro Pen Needle] 32 gauge x 1/4 needle See Rx Instructions .ROUTE .MEDSUPPLY Qty: 100 RF: 11 pantoprazole 40 mg tablet,delayed release (DR/EC) 40 mg PO DAILY Qty: 30 RF: 2 sucralfate 100 mg/mL suspension 10 ml PO BID Qty: 400 RF: 2 ondansetron HCl [Zofran] 4 mg tablet 4 mg PO Q12H Qty: 30 RF: 0 Held Victoza 2-Thee 0.6 mg/0.1 mL (18 mg/3 mL) pen injector 1.8 mg subcut Q24H 30 Days Qty: 9 RF: 11 Hold Instructions: Discuss when to restart with Dr Castillo metformin 1,000 mg tablet 1,000 mg PO BID 30 Days Qty: 60 RF: 6 Hold Instructions: Discuss when to restart with Dr Castillo Discontinued (DME) lancets [FreeStyle Lancets] 28 gauge misc See Rx Instructions .ROUTE .MEDSUPPLY Qty: 100 RF: 11 (DME) blood-glucose meter [FreeStyle Lite Meter] Kit See Rx Instructions .ROUTE .MEDSUPPLY Qty: 1 RF: 0 thiamine HCl (vitamin B1) 100 mg tablet 100 mg PO DAILY Qty: 30 RF: 2 vitamin A palmitate 15,000 unit tablet 15,000 unit PO .COMPLEX Qty: 30 RF: 2 cholecalciferol (vitamin D3) 125 mcg (5,000 unit) capsule 125 mcg PO DAILY Qty: 30 RF: 2 mecobalamin (vitamin B12) 1,000 mcg tablet,disintegrating 1,000 mcg sublingual DAILY Qty: 30 RF: 2 omeprazole 40 mg capsule,delayed release(DR/EC) 40 mg PO DAILY Qty: 30 RF: 1 polyethylene glycol 3350 [Miralax] 17 gram/dose powder 17 g PO DAILY Qty: 238 RF: 0 ergocalciferol (vitamin D2) 1,250 mcg (50,000 unit) capsule 1,250 mcg PO QWEEK 30 Days Qty: 5 RF: 3 polyethylene glycol 3350 [Miralax] 17 gram powder in packet 17 g PO DAILY Qty: 14 RF: 0 Discharge Orders: Discharge Order (Routine); Ordered 12/09/20 Ordered By: Omar Castillo Diet: other Activity on Discharge: No heavy lifting Stand Alone Forms: Patient Portal Discharge page Activity Restrictions/Additional Instructions: No tub baths, sex or returning to work until discussed at first post op appointment. No exercise, alcohol, tobacco or illegal drug use. Continue to use incentive spirometer hourly while awake. Walk in home for 5- 10 minutes every 2 hours during the first week. Continue phase 1 diet today and start phase 2 diet tomorrow morning. Follow all instructions in the bariatric handbook and call with any questions. JENNI drain care per bariatric handbook Care Plan Goals: weight loss Health Concerns: obesity, Type II DM Plan of Treatment: see discharge instructions Assessment: stable, pod #1 Discharge Date/Time: 12/09/20 14:30
[2020-12-08] MEDS: Famotidine/PF 20 MG/2 ML VIAL IVPUSH ×2 (12:23→21:01)
[2020-12-08 12:25] LABS: Hematocrit 42.5 % (37-47); Hemoglobin 13.8 g/dl (12.0-16.0)
[2020-12-08] MEDS: ondansetron HCL 4 MG/2 ML VIAL IVPUSH ×2 (12:46→21:01)
[2020-12-08 13:00] LABS: Anion Gap 14 (12-20); Blood Urea Nitrogen 7 mg/dL (9-16); Calcium 9.1 mg/dL (8.4-10.2); Carbon Dioxide 24 mmol/L (22-29); Chloride 104 mmol/L (96-108); Creatinine Clr Calc Pharmacy 102.7; Estimated Glomerular Filt Rate > 60; Glucose Random 159 mg/dL (60-115); Potassium 4.2 mmol/L (3.3-5.1); Sodium 138 mmol/L (135-145)
[2020-12-08] MEDS: Lactated Ringers 1,000 ML 150 ML IVCONT ×2 (14:26→21:01)
[2020-12-08] MEDS: 0.9 % Sodium Chloride Flush 3 ML SYRINGE IVFLUSH ×2 (14:28→21:01)
[2020-12-08] MEDS: ceFAZolin Sodium/Dextrose,Iso 2 GM/50 ML PIGGYBACK IV (14:33)
[2020-12-08 16:18] LABS: Glucose, Whole Blood 168 mg/dL (60-115)
[2020-12-08 20:40] LABS: Glucose, Whole Blood 147 mg/dL (60-115)
[2020-12-09] MEDS: Lactated Ringers 1,000 ML 150 ML IVCONT ×2 (03:31→11:55)
[2020-12-09 03:46] VITALS: BP 102/65; PULSE 67; RESP 20; TEMP 36.6; O2SAT 94
[2020-12-09 04:16] LABS: MANUAL DIFF FLAG NO
[2020-12-09 04:21] LABS: Hematocrit 35.8 % (37-47); Hemoglobin 11.7 g/dl (12.0-16.0); Imm Gran Abs Auto 0.02 X10*3/uL (0.00-0.03); Imm Gran Pct Auto 0.2 % (0.0-0.4); Lymphocytes Absolute Auto 1.5 X10*3/uL (1.2-4.9); Lymphocytes Percent Auto 16.1 % (20-40); Mean Corpuscular HGB Conc 32.7 g/dl (31.0-35.0); Mean Corpuscular Hemoglobin 29.7 pg (27.0-33.0); Mean Corpuscular Volume 90.9 fL (80-98); Mean Platelet Volume 9.8 fL (9.4-12.3); Monocytes Absolute Auto 0.7 X10*3/uL (0.1-1.2); Monocytes Percent Auto 7.6 % (2-11); Neutrophils Absolute Auto 7.1 X10*3/uL (2.0-8.3); Neutrophils Percent Auto 76.1 % (45-73); Platelet Count 235 X10*3/uL (160-400); Red Blood Count 3.94 X10*6/uL (4.20-5.50); Red Cell Distribution Width 12.4 % (11.0-16.0); White Blood Count 9.3 X10*3/uL (4.8-10.8)
[2020-12-09 04:45] LABS: Anion Gap 14 (12-20); Blood Urea Nitrogen 7 mg/dL (9-16); Calcium 8.9 mg/dL (8.4-10.2); Carbon Dioxide 23 mmol/L (22-29); Chloride 104 mmol/L (96-108); Creatinine Clr Calc Pharmacy 113.2; Estimated Glomerular Filt Rate > 60; Glucose Random 118 mg/dL (60-115); Potassium 4.3 mmol/L (3.3-5.1); Sodium 137 mmol/L (135-145)
[2020-12-09] MEDS: ondansetron HCL 4 MG/2 ML VIAL IVPUSH ×2 (05:23→12:07)
[2020-12-09 07:29] LABS: Glucose, Whole Blood 104 mg/dL (60-115)
[2020-12-09 07:54] VITALS: BP 111/72; PULSE 52; RESP 19; TEMP 37.1; O2SAT 95
[2020-12-09] MEDS: Famotidine/PF 20 MG/2 ML VIAL IVPUSH (07:59)
--- NOTE | 2020-12-09 09:22 | MHC.CM.PN ---
EMR REVIEWED, PT ADMITTED S/P GASTRIC BYPASS, ENDOSCOPY AND LYSIS OF ADHESIONS. CM MET W/ PT WHO IS INDEPENDENT W/ALL CARE, HAS NO DME AND NO HOME SERVICES. PT VERIFIES PCP. PHARMACY AND REPORTS SHE HAS NO HCP, PT PROVIDED W/EDUCATION AND BLANK HCP, PT DECLINING TO COMPLETE AT THIS TIME. PCP: ANUSHKA CAVANAUGH PHARMACY: [facility] [place]
[2020-12-09 11:30] LABS: Glucose, Whole Blood 95 mg/dL (60-115)
[2020-12-09 11:43] VITALS: BP 128/78; PULSE 54; RESP 18; TEMP 36.8; O2SAT 96
--- NOTE | 2020-12-09 12:39 | HO.POSTANES ---
Post Anesthesia Evaluation Post Anesthesia Evaluation Vital Signs: Vital Signs Temp Pulse Resp BP Pulse Ox 12/09/20 11:43 98.2 F 54 18 128/78 96 12/09/20 07:54 98.8 F 52 19 111/72 95 12/09/20 03:46 97.8 F 67 20 102/65 94 Anesthesia: General Endotracheal-GETA Mental Status: Awake Pain Control: Satisfactory Nausea/Vomiting: None Hydration: Adequate Anesthesia-Related Issues: No Anes. Related Issues
--- NOTE | 2020-12-09 14:34 | MHC.CM.PN ---
PT DISCHARGING TODAY, HOME SELF-CARE W/FOLLOW-UP IN SURGEONS OFFICE, FAMILY TO TRANSPORT
== END 2020-12-09 14:30 | disposition home or self-care (01) | DRG 403 ==
LOC: HO.SSSA 12:09 → HO.S3 13:08
PROVIDERS: Anesthesiology; Physician Assistant; Admitting Provider Surgery; PCP Internal Medicine; Visit Provider Surgery
PROC: 0D164ZA Bypass Stomach to Jejunum, Percutaneous Endoscopic Approach (ICD-10-PCS; CPT 43645; principal; 2020-12-08 07:30)
DX: E66.01 Morbid (severe) obesity due to excess calories (principal); E11.9 Type 2 diabetes mellitus without complications; K21.9 Gastro-esophageal reflux disease without esophagitis; E28.2 Polycystic ovarian syndrome; F32.9 Major depressive disorder, single episode, unspecified; K66.0 Peritoneal adhesions (postprocedural) (postinfection); Z20.822 Contact with and (suspected) exposure to COVID-19; Z68.37 Body mass index [BMI] 37.0-37.9, adult; Z79.899 Other long term (current) drug therapy
CPT/HCPCS: 43645; 36415; 74240; 80048; 81025; 82947; 85014; 85018; 85025; 86850; 86900; 86901; 87635; 99024; C1758; J0131; J0690; J1100; J1170; J2250; J2370; J2405; J2550; J3010

== ENCOUNTER → 2020-12-16 07:33 | Outpatient (BNVA) | payer OTHER, SELFPAY | PROVIDERS: PCP Internal Medicine; Visit Provider Surgery | DX: E66.01 Morbid (severe) obesity due to excess calories (principal); Z68.31 Body mass index [BMI] 31.0-31.9, adult | CPT/HCPCS: 99212 ==

== ENCOUNTER 2021-02-19 22:45 | Day surgery (SDC) | payer OTHER, SELFPAY ==
--- NOTE | ~2021-02-19 | US_ITS ---
EXAMINATION: US OBSTETRICAL ULTRASOUND CLINICAL INFORMATION: Vaginal bleed COMPARISON: None. LMP: 11/12/2020. Gestational age by maternal dates is 14 weeks 2 days. Estimated date of delivery by maternal dates is 08/19/2021. TECHNIQUE: Transabdominal and endovaginal sonographic evaluation of the pelvis. Doppler evaluation with spectral analysis performed. FINDINGS: Retroverted uterus measures 10.4 x 5.8 x 7.6 cm. There is thickening of the endometrium measuring 2.1 cm. Heterogeneous appearance of the endometrium with increased blood flow. There is no gestational sac seen. MATERNAL ADNEXA: The right maternal ovary measures 3.5 x 2 x 2.6 cm. 1.6 cm corpus luteal cyst noted. Normal venous spectral wave form. The left maternal ovary measures 3.9 x 2 x 2.3 cm. Normal venous spectral wave form noted. Small volume of free fluid adjacent to the right ovary. US/US OB transvaginal IMPRESSION: There is heterogeneous thickening of the endometrium with no gestational sac seen. This could be associated with miscarriage. No adnexal mass.
--- NOTE | ~2021-02-19 | US_ITS ---
EXAMINATION: US FIRST TRIMESTER CLINICAL INFORMATION: Vaginal bleeding positive hCG LMP: 11/12/2020 Beta-hC COMPARISON: None available. TECHNIQUE: Transabdominal imaging was performed. FINDINGS: Uterus normal in size 10.4 x 5.8 x 7.6 cm. UTERUS AND INTRAUTERINE GESTATIONAL SAC: No intrauterine gestational sac found. OVARIES: Right: Normal dominant follicle or corpus luteal cyst 1.6 cm. Left: Normal FREE FLUID: None OTHER FINDINGS: None US/US OB limited IMPRESSION: 1. No intrauterine gestational sac found. This could be due to miscarriage. Cannot rule out ectopic in the right clinical setting. 2. Likely Corpus luteal cyst right ovary 1.6 cm.
--- NOTE | ~2021-02-19 | US_ITS ---
EXAMINATION: US OBSTETRICAL ULTRASOUND CLINICAL INFORMATION: Vaginal bleed COMPARISON: None. LMP: 11/12/2020. Gestational age by maternal dates is 14 weeks 2 days. Estimated date of delivery by maternal dates is 08/19/2021. TECHNIQUE: Transabdominal and endovaginal sonographic evaluation of the pelvis. Doppler evaluation with spectral analysis performed. FINDINGS: Retroverted uterus measures 10.4 x 5.8 x 7.6 cm. There is thickening of the endometrium measuring 2.1 cm. Heterogeneous appearance of the endometrium with increased blood flow. There is no gestational sac seen. MATERNAL ADNEXA: The right maternal ovary measures 3.5 x 2 x 2.6 cm. 1.6 cm corpus luteal cyst noted. Normal venous spectral wave form. The left maternal ovary measures 3.9 x 2 x 2.3 cm. Normal venous spectral wave form noted. Small volume of free fluid adjacent to the right ovary. US/US OB <= 14 weeks fetus IMPRESSION: There is heterogeneous thickening of the endometrium with no gestational sac seen. This could be associated with miscarriage. No adnexal mass.
[2021-02-19 22:32] VITALS: BP 88/73; PULSE 118; RESP 18; TEMP 36.6; O2SAT 96; BMI 28.3
[2021-02-19] MEDS: 0.9 % Sodium Chloride 1,000 ML 999 ML IVCONT (22:55)
[2021-02-19 22:57] VITALS: BP 92/62; PULSE 90; RESP 16; O2SAT 98
[2021-02-19 22:59] LABS: MANUAL DIFF FLAG NO
[2021-02-19 23:00] LABS: Basophils Percent Auto 0.3 % (0-2); Eosinophils Absolute Auto 0.1 X10*3/uL (0.0-0.4); Eosinophils Percent Auto 0.8 % (0-4); Hematocrit 37.3 % (37-47); Hemoglobin 12.6 g/dl (12.0-16.0); Imm Gran Abs Auto 0.04 X10*3/uL (0.00-0.03); Imm Gran Pct Auto 0.4 % (0.0-0.4); Lymphocytes Absolute Auto 2.3 X10*3/uL (1.2-4.9); Lymphocytes Percent Auto 21.9 % (20-40); Mean Corpuscular HGB Conc 33.8 g/dl (31.0-35.0); Mean Corpuscular Hemoglobin 29.8 pg (27.0-33.0); Mean Corpuscular Volume 88.2 fL (80-98); Mean Platelet Volume 10.4 fL (9.4-12.3); Monocytes Absolute Auto 0.4 X10*3/uL (0.1-1.2); Neutrophils Absolute Auto 7.7 X10*3/uL (2.0-8.3); Neutrophils Percent Auto 72.6 % (45-73); Platelet Count 281 X10*3/uL (160-400); Red Blood Count 4.23 X10*6/uL (4.20-5.50); Red Cell Distribution Width 14.2 % (11.0-16.0); White Blood Count 10.6 X10*3/uL (4.8-10.8)
--- NOTE | 2021-02-19 23:03 | ED_ITS ---
HPI - Female Genitourinary General Chief complaint: Vaginal Bleeding Stated complaint: Vaginal bleeding Time Seen by Provider: 02/19/21 22:43 Source: patient Mode of arrival: ambulatory Limitations: no limitations History of Present Illness HPI Narrative: Patient with history of gastric bypass surgery in 12/02, [facility] good diabetes did have. For last 2 months started having bleeding today since afternoon soaked about 36 bed and 22 super plus tampons feels weak tired and dizzy on arrival patient's blood pressure was 88/73 pulse rate 118 patient never had similar complaints in the past MD elicited complaint: vaginal bleeding Related Data Previous Rx's Medication Instructions Recorded blood sugar diagnostic #50 ea 06/25/20 blood-glucose meter #1 ea 06/25/20 lancets 28 gauge #100 ea 06/25/20 liraglutide 0.6 mg/0.1 mL (18 mg/3 1.8 mg SUBCUT Q24H 30 Days #9 ml 10/19/20 mL) subcutaneous pen injector pen needle, diabetic 32 gauge x #100 ea 10/19/2008/17 ondansetron HCl 4 mg tablet 4 mg PO Q12H #30 tab 11/27/20 pantoprazole 40 mg tablet,delayed 40 mg PO DAILY #30 tab 11/27/20 release metformin 1,000 mg tablet 1,000 mg PO BID 30 Days #60 tab 11/30/20 ergocalciferol (vitamin D2) 1,250 1,250 mcg PO QWEEK #12 cap 12/27/20 mcg (50,000 unit) capsule sucralfate 100 mg/mL oral 10 ml PO BID #400 ml 02/04/21 suspension ferrous sulfate 325 mg PO DAILY #30 tab 02/20/21 Allergies Allergy/AdvReac Type Severity Reaction Status Date / Time No Known Allergies Allergy Verified 02/19/21 22:37 Review of Systems Review of Systems: Constitutional : No Weight loss, No Fever, No Chills ENT/Mouth : No sore throat, No Rhinorrhea Eyes: No Eye Pain, No Swelling Cardiovascular : No Chest Pain, no palpitations Respiratory : No Cough, No Sputum, no shortness of breath Gastrointestinal : no Nausea, No Vomiting, No Diarrhea, No abdominal Pain, no black stools Genitourinary : No Dysuria, No Urinary Frequency Musculoskeletal : No joint pain, No Myalgias, No Joint Swelling Skin : No Skin Lesions, No rash Neuro : No Weakness, No Numbness, No Dizziness, No Headache Psych : No Anxiety/Panic, No Depression Heme/Lymph: No Bruising, No Lymphadenopathy Endocrine : No Polyuria, No Polydipsia All other systems reviewed and are negative [facility] Past Medical History Medical History Amenorrhea BMI 33.0-33.9,adult BMI over 35 BMI over 35 Depression Depression, major, single episode, mild Diabetes mellitus GERD (gastroesophageal reflux disease) H. pylori infection Hirsutism Hyperhidrosis Obesity PCOS (polycystic ovarian syndrome) Snoring Steatosis, liver Type 2 diabetes mellitus Vitamin A deficiency Vitamin B1 deficiency Vitamin B12 deficiency Vitamin D deficiency Surgical History History of cleft palate Hx of gastric bypass Family History Family History Mother Diabetes Father No problems noted. Maternal Grandmother Diabetes Social History Social History Household Members Other:: Roommates Are you a primary pulmonary care nurse to a significant other at home: No Do you presently have visiting nurse or other home services: No Alcohol intake: never Cigarette Packs Per Day: 1 Years Smoked: 10 Advance Directives: No Advance Directives Information Provided: No Patient : No service: No Current occupational status: employed Physical Exam Vital Signs: Vital Signs: Last Vital Signs Temp 97.9 F 02/19/21 22:32 Pulse 82 02/19/21 23:48 Resp 12 02/19/21 23:48 BP 100/65 02/19/21 23:48 Pulse Ox 100 02/19/21 23:48 Body Mass Index 28.3 Appearance: Alert. Oriented X3. No acute distress. Eyes: PERRLA, No Nystagmus ENT: Pharynx normal. Oral Mucosa moist Neck: Normal inspection. Neck supple. CVS: Normal heart rate and rhythm. Pulses normal. Respiratory: No respiratory distress. Equal air entry bilateral, no wheezing/rales/rhonchi Abdomen: Soft Bowel sounds are present, no mass palpable, no CVA tenderness, mild suprapubic tenderness Skin: Skin warm and dry. Normal skin color. Normal skin turgor. Extremities: No lower extremity edema. No calf tenderness Neuro: Oriented X 3. No motor deficit. No sensory deficit.No cerebellar signs , cranial nerves II-XII intact MDM - Female Genitourinary MDM Narrative Medical decision making narrative: Patient with dysfunctional uterine bleed getting slower now spoke to Dr. Donovan, advised to start on control pills H&H stable will discharge patient on iron tablets advised to follow with fire tender patient hCG was 1005 patient denies that she could not be possible as she has PCOS. Will do ultrasound to rule out miscarriage Ultrasound done showed heavy bleeding with clots no sac was seen. Case discussed with Dr. Donovan will come down to see the patient in case bleeding continues , would like to watch for another 4 hours in the ER repeat hematocrit and if it significantly drops he will come and do D&C Patient signed out to Dr. Torres to follow the labs and disposition Lab Data Attestation: I reviewed the patient's lab results. Result diagrams: 02/19/21 22:52 02/19/21 22:52 Labs: Lab Results 02/19/21 02/19/21 02/19/21 Range/Units 22:52 22:52 22:52 WBC 10.6 (4.8-10.8) X10*3/uL RBC 4.23 (4.20-5.50) X10*6/uL Hgb 12.6 (12.0-16.0) g/dl Hct 37.3 (37-47) % MCV 88.2 (80-98) fL MCH 29.8 (27.0-33.0) pg MCHC 33.8 (31.0-35.0) g/dl RDW 14.2 (11.0-16.0) % Plt Count 281 (160-400) X10*3/uL MPV 10.4 (9.4-12.3) fL Immature Gran % (Auto) 0.4 (0.0-0.4) % Neut % (Auto) 72.6 (45-73) % Lymph % (Auto) 21.9 (20-40) % Woodruff % (Auto) 4.0 (2-11) % Eos % (Auto) 0.8 (0-4) % Baso % (Auto) 0.3 (0-2) % Lymph # (Auto) 2.3 (1.2-4.9) X10*3/uL Woodruff # (Auto) 0.4 (0.1-1.2) X10*3/uL Eos # (Auto) 0.1 (0.0-0.4) X10*3/uL Baso # (Auto) 0.0 (0.0-0.2) X10*3/uL Abs Immat Gran (auto) 0.04 H (0.00-0.03) X10*3/uL Absolute Neuts (auto) 7.7 (2.0-8.3) X10*3/uL Absolute Nucleated RBC 0.000 (0.0-0.012) X10*3/uL Nucleated RBC % (auto) 0.0 (0.0-0.2) /100WBC PT 13.5 H (9.9-13.0) SEC INR 1.2 H (0.9-1.1) Sodium 138 (135-145) mmol/L Potassium 4.5 (3.3-5.1) mmol/L Chloride 107 (96-108) mmol/L Carbon Dioxide 18 L (22-29) mmol/L Anion Gap 18 (12-20) BUN 8 L (9-16) mg/dL Creatinine 0.72 (0.5-1.4) mg/dL Estim Creat Clear Calc 110.8 Estimated GFR > 60 Random Glucose 173 H D (60-115) mg/dL Calcium 9.4 (8.4-10.2) mg/dL Beta HCG, Quant 1005 mIU/mL Blood Type Antibody Screen 02/19/21 Range/Units 23:10 WBC (4.8-10.8) X10*3/uL RBC (4.20-5.50) X10*6/uL Hgb (12.0-16.0) g/dl Hct (37-47) % MCV (80-98) fL MCH (27.0-33.0) pg MCHC (31.0-35.0) g/dl RDW (11.0-16.0) % Plt Count (160-400) X10*3/uL MPV (9.4-12.3) fL Immature Gran % (Auto) (0.0-0.4) % Neut % (Auto) (45-73) % Lymph % (Auto) (20-40) % Woodruff % (Auto) (2-11) % Eos % (Auto) (0-4) % Baso % (Auto) (0-2) % Lymph # (Auto) (1.2-4.9) X10*3/uL Woodruff # (Auto) (0.1-1.2) X10*3/uL Eos # (Auto) (0.0-0.4) X10*3/uL Baso # (Auto) (0.0-0.2) X10*3/uL Abs Immat Gran (auto) (0.00-0.03) X10*3/uL Absolute Neuts (auto) (2.0-8.3) X10*3/uL Absolute Nucleated RBC (0.0-0.012) X10*3/uL Nucleated RBC % (auto) (0.0-0.2) /100WBC PT (9.9-13.0) SEC INR (0.9-1.1) Sodium (135-145) mmol/L Potassium (3.3-5.1) mmol/L Chloride (96-108) mmol/L Carbon Dioxide (22-29) mmol/L Anion Gap (12-20) BUN (9-16) mg/dL Creatinine (0.5-1.4) mg/dL Estim Creat Clear Calc Estimated GFR Random Glucose (60-115) mg/dL Calcium (8.4-10.2) mg/dL Beta HCG, Quant mIU/mL Blood Type A Negative Antibody Screen NEGATIVE Discharge Plan Discharge Clinical Impression: Complete miscarriage Patient Disposition: Home, Self-Care Additional Instructions: Take iron tablets daily Follow-up with your fire tender Prescriptions: New ferrous sulfate 325 mg (65 mg iron) tablet,delayed release (DR/EC) 325 mg PO DAILY Qty: 30 RF: 0 No Action (DME) FreeStyle Lite Strips Strip See Rx Instructions .ROUTE .MEDSUPPLY Qty: 50 RF: 11 (DME) blood-glucose meter [FreeStyle [place] Lite] Kit See Rx Instructions .ROUTE .MEDSUPPLY Qty: 1 RF: 0 (DME) lancets [FreeStyle Lancets] 28 gauge misc See Rx Instructions .ROUTE .MEDSUPPLY Qty: 100 RF: 0 Victoza 2-Thee 0.6 mg/0.1 mL (18 mg/3 mL) pen injector 1.8 mg subcut Q24H 30 Days Qty: 9 RF: 11 Hold Instructions: Discuss when to restart with Dr Castillo (DME) pen needle, diabetic [BD Ultra-Fine Micro Pen Needle] 32 gauge x 1/4 needle See Rx Instructions .ROUTE .MEDSUPPLY Qty: 100 RF: 11 metformin 1,000 mg tablet 1,000 mg PO BID 30 Days Qty: 60 RF: 6 Hold Instructions: Discuss when to restart with Dr Castillo ergocalciferol (vitamin D2) 1,250 mcg (50,000 unit) capsule 1,250 mcg PO QWEEK Qty: 12 RF: 1 sucralfate 100 mg/mL suspension 10 ml PO BID Qty: 400 RF: 0 pantoprazole 40 mg tablet,delayed release (DR/EC) 40 mg PO DAILY Qty: 30 RF: 2 ondansetron HCl [Zofran] 4 mg tablet 4 mg PO Q12H Qty: 30 RF: 0 Referrals: Ridge Donovan MD [Physician] - 3 days
[2021-02-19 23:06] LABS: INTERNATIONAL NORM RATIO 1.2 (0.9-1.1); Prothrombin Time 13.5 SEC (9.9-13.0)
[2021-02-19 23:19] LABS: Anion Gap 18 (12-20); Blood Urea Nitrogen 8 mg/dL (9-16); Calcium 9.4 mg/dL (8.4-10.2); Carbon Dioxide 18 mmol/L (22-29); Chloride 107 mmol/L (96-108); Creatinine Clr Calc Pharmacy 110.8; Estimated Glomerular Filt Rate > 60; Glucose Random 173 mg/dL (60-115); Potassium 4.5 mmol/L (3.3-5.1); Sodium 138 mmol/L (135-145)
[2021-02-19 23:27] LABS: HCG Quantitative 1005 mIU/mL
[2021-02-19 23:48] VITALS: BP 100/65; PULSE 82; RESP 12; O2SAT 100
[2021-02-20] VITALS (9 sets, daily range): BP systolic 90–104; BP diastolic 51–67; PULSE 70–93; RESP 14–18; TEMP 36.6; O2SAT 95–100
--- NOTE | 2021-02-20 02:55 | PC.NURSE ---
Addendum entered by Aby Morales 02/20/21 05:34: VAGINAL BLEEDING POSSIBLY DUE TO A MISCARRIAGE, NO GESTATIONAL SAC SEEN ON ULTRASOUND. Original Note: REPORT FROM RUY AT 03:00. PLAN IS TO REPEAT BLOOD WORK H&H IN 4 HOURS. CONTINUE TO MONITOR BLOOD LOSS AND MONITOR FOR HYPOTENSION AND OR TACHYCARDIA. LET MD PWOELL KNOW IF VITALS CHANGE. PT AWARE THAT SHE IS HAVING VAGINAL BLEEDING DUE TO A MISCARRIAGE. MD TO BE NOTIFIED IF HR ABOVE 110 AND BP BELOW 90 SYSTOLIC.
[2021-02-20 02:58] LABS: Hematocrit 31.3 % (37-47); Hemoglobin 10.6 g/dl (12.0-16.0)
[2021-02-20] MEDS: 0.9 % Sodium Chloride 1,000 ML 999 ML IVCONT (03:02)
--- NOTE | 2021-02-20 04:32 | PC.NURSE ---
pt assisted to bathroom in [place]. pt reports the vaginal bleeding is not as heavy and feels less dizzy while standing.
[2021-02-20 05:53] LABS: Hematocrit 26.1 % (37-47); Hemoglobin 8.7 g/dl (12.0-16.0)
[2021-02-20 06:31] LABS: HCG Quantitative 577 mIU/mL
--- NOTE | 2021-02-20 06:43 | P.CONOB_ITS ---
OYSTER CULTIVATOR - CN: HPI Data of Consult Consult date: 02/20/21 Consult Narrative Narrative: Norah Peñaloza is a 35 year old female who presented emergency room complaining of vaginal bleeding was diagnosed with positive test hCG was 1100. Ultrasound showed no evidence of intrauterine but thickened endometrium possible SAB initial H&H was 11.7/35.8 the bleeding started to slow zone repeat H&H this morning dropped to 8.7/26.1. Rh is negative, antibody scre en negative The patient was observed over the last 3 hours her bleeding and pelvic cramping slowed down cc:: CC: FLIGHT ATTENDANT RAMP - Review of Systems Review of Systems ROS Unobtainable: All systems reviewed & are unremarkable except as noted in HPI and below Cardiovascular: Denies Palpatations, Loss of consciousness and Chest pain Respiratory: Denies Cough, Wheezing and Shortness of breath Musculoskeletal: Denies Low back pain Gastrointestinal: Denies Heartburn, Constipation, Diarrhea, Nausea and Vomiting Genitourinary: Denies Pain with urination, Burning with urination and Urinary frequency Neurological: Denies Migranes Psychological: Denies Depression OB PMFSH Past Medical History Medical History Amenorrhea BMI 33.0-33.9,adult BMI over 35 BMI over 35 Depression Depression, major, single episode, mild Diabetes mellitus GERD (gastroesophageal reflux disease) H. pylori infection Hirsutism Hyperhidrosis Obesity PCOS (polycystic ovarian syndrome) Snoring Steatosis, liver Type 2 diabetes mellitus Vitamin A deficiency Vitamin B1 deficiency Vitamin B12 deficiency Vitamin D deficiency Family History Family History Mother Diabetes Father No problems noted. Maternal Grandmother Diabetes Surgical History Surgical History History of cleft palate Hx of gastric bypass Social History Social History Household Members Other:: Roommates Are you a primary urgent care technician to a significant other at home: No Do you presently have visiting nurse or other home services: No Alcohol intake: never Cigarette Packs Per Day: 1 Years Smoked: 10 Advance Directives: No Advance Directives Information Provided: No Patient : No service: No Current occupational status: employed Meds Allergies Allergy/AdvReac Type Severity Reaction Status Date / Time No Known Allergies Allergy Verified 02/19/21 22:37 Active Medications: Current Medications Generic Name Dose Route Start Last Admin Trade Name Lindsey PRN Reason Stop Dose Admin Pharmacy Consult 1 each 02/20/21 06:41 Consult Rx Perform Med Rec MISCELLANE ONCE PRN Consult order OYSTER CULTIVATOR Physical Exam Vitals Vital signs: Temp Pulse Resp BP Pulse Ox 97.9 F 82 14 99/62 100 02/19/21 22:32 02/20/21 04:32 02/20/21 04:32 02/20/21 04:32 02/20/21 04:32 Body Mass Index 28.3 Constitutional General Appearance: Healthy appearing, Well-nourished and Well-developed Psychiatric Mood and Affect: active and alert, normal mood and normal affect Skin Appearance: No rashes and No lesions Lungs Respiratory Effort: No intercostal retractions Auscultation: Clear to auscultation Cardiovascular Auscultation: RRR Abdomen Auscultation/Inspection/Palpation: Normal bowel sounds, Soft, Non-distended and No tenderness Female Genitalia (Pelvic) Uterus: Enlarged Adnexa/Parametria: Adnexal Tenderness: None, Adnexal Mass: None and Parametrial Tenderness: None Additional Comments: Blood per vagina and products of conception coming out through the cervix, pulled out with ring forceps, this was followed by active vaginal bleeding OYSTER CULTIVATOR - Results Labs CBC & Chem 7: 02/20/21 05:48 02/19/21 22:52 Labs: Short CBC 02/19/21 02/20/21 02/20/21 Range/Units 22:52 02:55 05:48 WBC 10.6 (4.8-10.8) X10*3/uL Hgb 12.6 10.6 L 8.7 L (12.0-16.0) g/dl Hct 37.3 31.3 L 26.1 L (37-47) % Plt Count 281 (160-400) X10*3/uL BMP 02/19/21 22:52 Sodium 138 Potassium 4.5 Chloride 107 Carbon Dioxide 18 L BUN 8 L Creatinine 0.72 Calcium 9.4 Antibody Screen Antibody Screen NEGATIVE 02/19/21 23:10 Assessment and Plan (1) Incomplete : Status: Acute Products of conception taken out of the cervical os using ring forceps this was followed by active vaginal bleeding, GC and Chlamydia, BV panel and Trichomonas taken. Recommended to the patient suction D&C . Discussed with the patient the benefits and risks including but not limited to: bleeding, infection, possible uterine perforation, possible injury to ureter bladder bowel, possible need for blood transfusion with all its risks, possible laparoscopy, laparotomy, hysterectomy. All questions answered patient verbalized understanding and agreed with the plan and signed the consent. Rhogram 300 mcg IM to be given to patient.
--- NOTE | 2021-02-20 06:47 | PC.NURSE ---
MD PULIDO AT BEDSIDE FOR PELVIC EXAM, LARGE CLOT REMOVED AND PT FEELING LESS CRAMPING. POC SENT WALKED DOWN WITH REQUESTED PELVIC CULTURES COLLECTED BY . PT AWAKE AND ALERT, HAS BEEN NPO SINCE ARRIVAL TO ER. PT AWARE THAT SHE WILL GO TO O.[facility]. FOR DNC. SECOND IV LINE PLACED.
[2021-02-20] MEDS: Rho(D) Immune Globulin 300 MCG SYRINGE IM (07:10)
[2021-02-20 07:15] LABS: COVID-19 Test Negative (Negative); IDNOW Serial# 9DD0AD1C
--- NOTE | 2021-02-20 07:22 | P.CONAN_ITS ---
[facility] Active Problems Active Problems: All Active Problems (Updated 02/20/21 @ 06:47 by Ridge Donovan MD) Incomplete (Acute) Complete miscarriage (Acute) BMI 31.0-31.9,adult (Acute) Depression (Acute) Steatosis, liver (Acute) Congenital intra-abdominal adhesions (Acute) S/P gastric bypass (Acute) BMI 36.0-36.9,adult (Acute) Depressive disorder due to separate medical condition (Acute) GERD (gastroesophageal reflux disease) (Acute) Type 2 diabetes mellitus (Acute) Obesity (Acute) Hyperhidrosis (Acute) PCOS (polycystic ovarian syndrome) (Acute) Past Medical History Medical History Amenorrhea BMI 33.0-33.9,adult BMI over 35 BMI over 35 Depression Depression, major, single episode, mild Diabetes mellitus GERD (gastroesophageal reflux disease) H. pylori infection Hirsutism Hyperhidrosis Obesity PCOS (polycystic ovarian syndrome) Snoring Steatosis, liver Type 2 diabetes mellitus Vitamin A deficiency Vitamin B1 deficiency Vitamin B12 deficiency Vitamin D deficiency Family History Family History Mother Diabetes Father No problems noted. Maternal Grandmother Diabetes Surgical History Surgical History History of cleft palate Hx of gastric bypass Social History Social History Household Members Other:: Roommates Are you a primary intensive care unit registered nurse to a significant other at home: No Do you presently have visiting nurse or other home services: No Alcohol intake: never Cigarette Packs Per Day: 1 Years Smoked: 10 Advance Directives: No Advance Directives Information Provided: No Patient : No service: No Current occupational status: employed Meds Allergies Allergy/AdvReac Type Severity Reaction Status Date / Time No Known Allergies Allergy Verified 02/19/21 22:37 Active Medications: Current Medications Generic Name Dose Route Start Last Admin Trade Name Freq PRN Reason Stop Dose Admin Fentanyl Confirm 02/20/21 07:19 Fentanyl Citrate/Pf 100 Mcg/2 Ml Vial Administered 02/20/21 07:20 Dose 100 mcg .ROUTE .K-MED ONE Exam Exam Date and Time: February 20, 2021 0722 Height,Weight and Vital Signs: Height 5 ft 5 in Weight 77.111 kg Last Vital Signs Temp 97.9 F 02/19/21 22:32 Pulse 93 02/20/21 06:50 Resp 16 02/20/21 06:50 BP 96/67 02/20/21 06:50 Pulse Ox 95 02/20/21 06:50 Pertinent Lab Results Pertinent Lab Results: Laboratory Tests 02/19/21 02/19/21 02/19/21 22:52 22:52 22:52 WBC 10.6 RBC 4.23 Hgb 12.6 Hct 37.3 MCV 88.2 MCH 29.8 MCHC 33.8 RDW 14.2 Plt Count 281 MPV 10.4 Immature Gran % (Auto) 0.4 Neut % (Auto) 72.6 Lymph % (Auto) 21.9 Atkinson % (Auto) 4.0 Eos % (Auto) 0.8 Baso % (Auto) 0.3 Lymph # (Auto) 2.3 Atkinson # (Auto) 0.4 Eos # (Auto) 0.1 Baso # (Auto) 0.0 Abs Immat Gran (auto) 0.04 H Absolute Neuts (auto) 7.7 Absolute Nucleated RBC 0.000 Nucleated RBC % (auto) 0.0 PT 13.5 H INR 1.2 H Sodium 138 Potassium 4.5 Chloride 107 Carbon Dioxide 18 L Anion Gap 18 BUN 8 L Creatinine 0.72 Estim Creat Clear Calc 110.8 Estimated GFR > 60 Random Glucose 173 H D Calcium 9.4 Beta HCG, Quant 1005 COVID-19 ([place]) COVID-19 Clin Com Blood Type Antibody Screen 02/19/21 02/20/21 02/20/21 23:10 02:55 05:48 WBC RBC Hgb 10.6 L Hct 31.3 L MCV MCH MCHC RDW Plt Count MPV Immature Gran % (Auto) Neut % (Auto) Lymph % (Auto) Atkinson % (Auto) Eos % (Auto) Baso % (Auto) Lymph # (Auto) Atkinson # (Auto) Eos # (Auto) Baso # (Auto) Abs Immat Gran (auto) Absolute Neuts (auto) Absolute Nucleated RBC Nucleated RBC % (auto) PT INR Sodium Potassium Chloride Carbon Dioxide Anion Gap BUN Creatinine Estim Creat Clear Calc Estimated GFR Random Glucose Calcium Beta HCG, Quant 577 COVID-19 ([place]) COVID-19 Clin Com Blood Type A Negative Antibody Screen NEGATIVE 02/20/21 02/20/21 05:48 06:43 WBC RBC Hgb 8.7 L Hct 26.1 L MCV MCH MCHC RDW Plt Count MPV Immature Gran % (Auto) Neut % (Auto) Lymph % (Auto) Atkinson % (Auto) Eos % (Auto) Baso % (Auto) Lymph # (Auto) Atkinson # (Auto) Eos # (Auto) Baso # (Auto) Abs Immat Gran (auto) Absolute Neuts (auto) Absolute Nucleated RBC Nucleated RBC % (auto) PT INR Sodium Potassium Chloride Carbon Dioxide Anion Gap BUN Creatinine Estim Creat Clear Calc Estimated GFR Random Glucose Calcium Beta HCG, Quant COVID-19 ([place]) Negative COVID-19 Clin Com See Note Blood Type Antibody Screen Airway Mallampati Class: II TM Dist: >3cm Neck ROM: Full Loose/Missing/Broken Teeth: No Heart: RRR Lungs: CTA Assessment and Plan Assessment Anesthesia Assessment: Anesthesia Plan Discussed and Chart Reviewed Final Anesthetic Review NPO: Yes ASA Class: III Final Preanesthetic Review: No Changes in Pt Med Stat, Meds/Allgs Chart Reviewed, Consent Obtained/Reviewed and Anes Risks/Benef Reviewed Patient Risk: Intermediate Procedure Risk: Low Anesthetic Plan Anesthetic Plan: GA Disposition: Standard PACU
--- NOTE | 2021-02-20 07:55 | PC.NURSE ---
Pt given po Doxy and IM Rogam at 0710. Medications not scanning at that time but verified with pt in OCT. Second IV placed to left AC and pt sent to OR.
--- NOTE | 2021-02-20 07:57 | PC.NURSE ---
Pt brought to OR at 0730
--- NOTE | 2021-02-20 07:58 | MHC.SHP ---
Pre-Procedural Eval Section A Date of Service: 02/20/21 The patient is an INPATIENT: No Changes since office visit: No Cold of Flu in the past 2 weeks, No New Medical Problems, No Changes in Medication and No Patient answered all questions The History & Physical has been completed within 30 days and I have reviewed it.: Yes Section B Chief Complaint: Vaginal bleeding Allergies: Allergies Allergy/AdvReac Type Severity Reaction Status Date / Time No Known Allergies Allergy Verified 02/19/21 22:37 Plan Diagnosis/Plan: Unchanged I have reviewed the history and physical and performed a pertinent physical examination on my patient. No changes have occurred unless specified.
--- NOTE | 2021-02-20 07:58 | PM.OP ---
Brief Operative Note Date of Service: 02/20/21 Pre-op diagnosis: Incomplete Post-op diagnosis: same Procedure: Suction D&C Surgeon: Ridge Donovan MD Anesthesia: MAC Was an Crm Marketing Specialist used for this Procedure?: No Estimated blood loss (mL): 100 Pathology: other (Products of conception) Condition: stable Disposition: PACU
--- NOTE | 2021-02-20 07:59 | P.OP_ITS ---
Operative Note Operative Note Date of Service: 10/30/20 Narrative: Preop diagnosis: Incomplete AB Operation: suction D and C Postop diagnosis: The same EBL: 100 cc Anesthesia: MAC Merchandising Execution Manager: None Pathology: Products of conception Procedure: The patient was put in a dorsal distal mid position was scrubbed and draped in the usual sterile fashion. A sterile speculum was inserted inside the patient's vagina the anterior lip of the cervix was grasped with single-tooth tenaculum the cervix was dilated up to 7 mm. Under ultrasonographic guidance flexible 7. Suction tip was introduced inside the patient ran cavity till the fundus was hit then turning the suction 360 degrees around products of conception was sucked out toward the uterine cavity. The suction tip was taken out of the patient uterine cavity sharp curettings was followed in 4 quadrants of the uterus till a gritty feeling was felt. The suction tip was reintroduced under ultrasonographic guidance and intrauterine blood was sucked. The suction tip was taken out. Single-tooth tenaculum was removed hemostasis assured using pressure. The patient tolerated the procedure well and was transferred to the PACU in a stable condition.
[2021-02-20] MEDS: Acetaminophen 325 MG TABLET 650 MG PO (08:47)
[2021-02-20 11:24] LABS: CT PCR NOT DETECTED (Not Detect.); NG PCR NOT DETECTED (Not Detect.)
[2021-02-20 13:35] LABS: BV Int Neg Control Negative (Negative); BV Int Pos Control Positive (Positive)
--- NOTE | 2021-02-21 07:55 | HO.POSTANES ---
Post Anesthesia Evaluation Post Anesthesia Evaluation Anesthesia: General LMA Mental Status: Awake Pain Control: Satisfactory Nausea/Vomiting: None Hydration: Adequate Anesthesia-Related Issues: No Anes. Related Issues
== END 2021-02-20 09:44 | disposition admitted as inpatient to this hospital (09) ==
LOC: HO.ED 02-20 07:51 → HO.SSS 02-23 10:02
PROVIDERS: Obstetrics & Gynecology; PCP Internal Medicine; Visit Provider Internal Medicine
PROC: (CPT 59812; principal; 2021-02-20 07:10)
DX: O03.4 Incomplete spontaneous abortion without complication (principal); E11.9 Type 2 diabetes mellitus without complications; F32.0 Major depressive disorder, single episode, mild; E28.2 Polycystic ovarian syndrome; K76.0 Fatty (change of) liver, not elsewhere classified; L68.0 Hirsutism; R06.83 Snoring; E50.9 Vitamin A deficiency, unspecified; E53.8 Deficiency of other specified B group vitamins; E51.9 Thiamine deficiency, unspecified; E55.9 Vitamin D deficiency, unspecified; E54 Ascorbic acid deficiency; Z79.899 Other long term (current) drug therapy; Z98.84 Bariatric surgery status; Z87.891 Personal history of nicotine dependence
CPT/HCPCS: 59812; 36415; 76801; 76815; 76817; 80048; 84702; 85014; 85018; 85025; 85610; 86850; 86900; 86901; 87480; 87491; 87510; 87591; 87635; 87660; 88305; 96360; 99285; J2370; J2405; J2590; J2790; J3010

== ENCOUNTER 2021-03-08 12:29 | Outpatient (REF) | payer OTHER, SELFPAY ==
[2021-03-08 14:32] LABS: HCG Quantitative 13 mIU/mL
== END 2021-03-08 12:30 | disposition home or self-care (01) ==
LOC: HO.HMGCLDS 12:29
PROVIDERS: PCP Internal Medicine; Visit Provider Obstetrics & Gynecology
DX: Z30.09 Encounter for other general counseling and advice on contraception (principal); O03.4 Incomplete spontaneous abortion without complication
CPT/HCPCS: 36415; 84702

== ENCOUNTER 2021-04-22 11:01 | Outpatient (REF) | payer OTHER, SELFPAY ==
[2021-04-22 13:09] LABS: HCG Quantitative < 2 mIU/mL
== END 2021-04-22 11:02 | disposition home or self-care (01) ==
LOC: HO.LAB 11:01
PROVIDERS: PCP Internal Medicine; Visit Provider Obstetrics & Gynecology
DX: Z30.430 Encounter for insertion of intrauterine contraceptive device (principal); Z87.59 Personal history of other complications of pregnancy, childbirth and the puerperium
CPT/HCPCS: 36415; 58300; 84702

== ENCOUNTER 2021-08-27 09:45 | Outpatient (REF) | payer OTHER, SELFPAY ==
[2021-08-27 11:10] LABS: MANUAL DIFF FLAG NO
[2021-08-27 11:50] LABS: Basophils Percent Auto 0.2 % (0-2); Eosinophils Absolute Auto 0.2 X10*3/uL (0.0-0.4); Eosinophils Percent Auto 3.8 % (0-4); Hematocrit 33.7 % (37.0-47.0); Imm Gran Abs Auto 0.01 X10*3/uL (0.00-0.03); Imm Gran Pct Auto 0.2 % (0.0-0.4); Lymphocytes Percent Auto 38.4 % (20-40); Mean Corpuscular HGB Conc 29.7 g/dl (31.0-35.0); Mean Corpuscular Hemoglobin 24.8 pg (27.0-33.0); Mean Corpuscular Volume 83.6 fL (80.0-98.0); Mean Platelet Volume 10.8 fL (9.4-12.3); Monocytes Absolute Auto 0.4 X10*3/uL (0.1-1.2); Monocytes Percent Auto 7.5 % (2-11); Neutrophils Absolute Auto 2.6 x10*3/uL (2.0-8.3); Neutrophils Percent Auto 49.9 % (45-73); Platelet Count 313 X10*3/uL (160-400); Red Blood Count 4.03 X10*6/uL (4.20-5.50); Red Cell Distribution Width 16.5 % (11.0-16.0); White Blood Count 5.2 X10*3/uL (4.8-10.8)
[2021-08-27 11:55] LABS: Estimated Average Glucose 103 mg/dL; Hemoglobin A1c % 5.2 %
[2021-08-27 12:20] LABS: Alanine Aminotransferase 15 U/L (0-31); Alkaline Phosphatase 92 U/L (39-117); Anion Gap 11 (12-20); Aspartate Amino Transferase 17 U/L (5-31); Bilirubin Total 0.5 mg/dL (0.0-1.0); Blood Urea Nitrogen 14 mg/dL (9-16); C Reactive Protein 0.18 mg/dL (< or = 0.50); Calcium 9.9 mg/dL (8.4-10.2); Carbon Dioxide 27 mmol/L (22-29); Chloride 107 mmol/L (96-108); Cholesterol 158 mg/dL; Estimated Glomerular Filt Rate > 60; Glucose Random 85 mg/dL (60-115); HDL Cholesterol 48 mg/dL; Iron 23 mcg/dL (30-160); LDL Cholesterol Calculated 95 mg/dl; Percent Iron Saturation 5 % (15-50); Potassium 5.1 mmol/L (3.3-5.1); Sodium 140 mmol/L (135-145); Total Iron Binding Capacity 426 mcg/dL (228-428); Total Protein 7.4 g/dL (6.5-8.0); Triglycerides 75 mg/dL; Unsaturated Iron Binding 403 ug/dL
[2021-08-27 12:43] LABS: Ferritin 6 ng/mL (10-122); Insulin 9 uU/mL (2-29); TSH reflex Free T4 1.08 uIU/mL (0.32-4.0); Vitamin D 25-OH Total 24.3 ng/mL (>30)
[2021-08-27 12:54] LABS: Folate > 20.0 ng/mL (> or = 4.0); Vitamin B12 336 pg/mL (200-900)
[2021-08-31 15:06] LABS: Calcium (PTHI) 9.9 mg/dL (8.6-10.2); PTHI 30 pg/mL (14-64)
[2021-09-01 03:01] LABS: Zinc 82 mcg/dL (60-130)
[2021-09-02 16:56] LABS: Vitamin B1 <6 nmol/L (8-30)
[2021-09-03 23:56] LABS: Vitamin A 37 mcg/dL (38-98)
== END 2021-08-27 09:46 | disposition home or self-care (01) ==
LOC: HO.LAB 09:45
PROVIDERS: PCP Internal Medicine; Referring Provider Internal Medicine; Visit Provider Physician Assistant
DX: E66.3 Overweight (principal); E11.65 Type 2 diabetes mellitus with hyperglycemia; D50.9 Iron deficiency anemia, unspecified; Z79.899 Other long term (current) drug therapy; Z71.3 Dietary counseling and surveillance; Z87.891 Personal history of nicotine dependence; Z98.84 Bariatric surgery status
CPT/HCPCS: 36415; 80053; 80061; 82306; 82607; 82728; 82746; 83036; 83525; 83540; 83970; 84425; 84443; 84590; 84630; 85025; 86140

== ENCOUNTER → 2021-12-10 08:08 | Outpatient (BNVA) | payer OTHER, SELFPAY | PROVIDERS: PCP Internal Medicine; Visit Provider Physician Assistant | DX: E66.9 Obesity, unspecified (principal); Z68.25 Body mass index [BMI] 25.0-25.9, adult; Z98.84 Bariatric surgery status | CPT/HCPCS: 99212 ==

== ENCOUNTER 2022-04-04 19:27 | Emergency (ER) | payer OTHER, SELFPAY ==
[2022-04-04 19:52] VITALS: BP 103/66; PULSE 64; RESP 16; TEMP 36.6; O2SAT 99; BMI 27.9
== END 2022-04-04 21:13 | disposition left against medical advice (07) ==
LOC: HO.ED 21:00
PROVIDERS: Emergency Provider Emergency Medicine; PCP Internal Medicine
DX: R21 Rash and other nonspecific skin eruption (principal)
CPT/HCPCS: 99281

== ENCOUNTER → 2022-05-10 09:26 | Outpatient (BNVA) | payer OTHER, SELFPAY | PROVIDERS: PCP Internal Medicine; Visit Provider Obstetrics & Gynecology | DX: Z30.432 Encounter for removal of intrauterine contraceptive device (principal); Z32.02 Encounter for pregnancy test, result negative | CPT/HCPCS: 58301; 81025 ==

== ENCOUNTER → 2022-05-18 13:52 | Outpatient (BNVA) | payer OTHER, SELFPAY | PROVIDERS: PCP Internal Medicine; Referring Provider Physician Assistant; Visit Provider Physician Assistant Surgical | DX: E66.3 Overweight (principal); L98.7 Excessive and redundant skin and subcutaneous tissue; Z98.84 Bariatric surgery status; Z68.27 Body mass index [BMI] 27.0-27.9, adult | CPT/HCPCS: 99212 ==

== ENCOUNTER 2022-08-18 12:14 | Outpatient (REF) | payer OTHER, SELFPAY ==
[2022-08-18 12:31] LABS: MANUAL DIFF FLAG NO
[2022-08-18 13:29] LABS: Basophils Percent Auto 0.6 % (0-2); Eosinophils Absolute Auto 0.1 X10*3/uL (0.0-0.4); Eosinophils Percent Auto 2.5 % (0-4); Hemoglobin 13.3 g/dl (12.0-16.0); Imm Gran Abs Auto 0.01 X10*3/uL (0.00-0.03); Imm Gran Pct Auto 0.2 % (0.0-0.4); Lymphocytes Absolute Auto 2.2 X10*3/uL (1.2-4.9); Mean Corpuscular HGB Conc 32.4 g/dl (31.0-35.0); Mean Corpuscular Hemoglobin 28.8 pg (27.0-33.0); Mean Corpuscular Volume 88.7 fL (80.0-98.0); Mean Platelet Volume 9.8 fL (9.4-12.3); Monocytes Absolute Auto 0.4 X10*3/uL (0.1-1.2); Monocytes Percent Auto 6.9 % (2-11); Neutrophils Absolute Auto 2.6 x10*3/uL (2.0-8.3); Neutrophils Percent Auto 48.8 % (45-73); Platelet Count 302 X10*3/uL (160-400); Red Blood Count 4.62 X10*6/uL (4.20-5.50); Red Cell Distribution Width 13.2 % (11.0-16.0); White Blood Count 5.2 X10*3/uL (4.8-10.8)
[2022-08-18 13:34] LABS: Estimated Average Glucose 108 mg/dL; Hemoglobin A1c % 5.4 %
[2022-08-18 14:33] LABS: Alanine Aminotransferase 19 U/L (0-31); Albumin Level 4.1 g/dL (3.5-5.0); Alkaline Phosphatase 94 U/L (39-117); Anion Gap 11 (12-20); Aspartate Amino Transferase 23 U/L (5-31); Bilirubin Total 0.8 mg/dL (0.0-1.0); Blood Urea Nitrogen 12 mg/dL (9-16); C Reactive Protein 0.16 mg/dL (< or = 0.50); Calcium 9.5 mg/dL (8.4-10.2); Carbon Dioxide 28 mmol/L (22-29); Chloride 107 mmol/L (96-108); Cholesterol 161 mg/dL; Estimated Glomerular Filt Rate > 60; Glucose Random 82 mg/dL (60-115); HDL Cholesterol 43 mg/dL; Iron 159 mcg/dL (30-160); LDL Cholesterol Calculated 94 mg/dl; Percent Iron Saturation 46 % (15-50); Potassium 4.9 mmol/L (3.3-5.1); Sodium 141 mmol/L (135-145); Total Iron Binding Capacity 346 mcg/dL (228-428); Total Protein 7.5 g/dL (6.5-8.0); Triglycerides 121 mg/dL; Unsaturated Iron Binding 187 ug/dL
[2022-08-18 14:56] LABS: Ferritin 15 ng/mL (10-122); Insulin 12 uU/mL (2-29); TSH reflex Free T4 1.21 uIU/mL (0.32-4.0); Vitamin D 25-OH Total 19.5 ng/mL (>30)
[2022-08-18 15:06] LABS: Folate 13.8 ng/mL (> or = 4.0); Vitamin B12 436 pg/mL (200-900)
[2022-08-19 17:17] LABS: Calcium (PTHI) 9.4 mg/dL (8.6-10.2); PTHI 70 pg/mL (16-77)
[2022-08-23 12:28] LABS: Zinc 72 mcg/dL (60-130)
[2022-08-23 16:48] LABS: Vitamin B1 11 nmol/L (8-30)
[2022-08-24 10:23] LABS: Vitamin A 37 mcg/dL (38-98)
== END 2022-08-18 12:15 | disposition home or self-care (01) ==
LOC: HO.LAB 12:14
PROVIDERS: PCP Internal Medicine; Visit Provider Physician Assistant Surgical
DX: E66.3 Overweight (principal); L98.7 Excessive and redundant skin and subcutaneous tissue; Z98.84 Bariatric surgery status
CPT/HCPCS: 36415; 80053; 80061; 82306; 82607; 82728; 82746; 83036; 83525; 83540; 83970; 84425; 84443; 84590; 84630; 85025; 86140

== ENCOUNTER → 2022-08-19 13:30 | Outpatient (BNVA) | payer OTHER, SELFPAY | PROVIDERS: PCP Internal Medicine; Visit Provider Physician Assistant Surgical | DX: E66.3 Overweight (principal); L98.7 Excessive and redundant skin and subcutaneous tissue; Z98.84 Bariatric surgery status; Z68.27 Body mass index [BMI] 27.0-27.9, adult | CPT/HCPCS: 99212 ==

== ENCOUNTER 2023-02-27 15:52 | Outpatient (AMB) | payer OTHER, SELFPAY ==
--- NOTE | 2023-02-27 15:57 | A.OFFVIS_ITS ---
Intake VS Expanded 02/27/23 16:01 Height 5 ft 6 in Weight 176 lb 12.8 oz BMI 28.5 BP 133/79 Blood Pressure Location Rt brachial Blood Pressure Position Sitting Pulse 77 Pulse Source Pulse Oximeter Temp 98.5 F Temperature Source Temporal Artery Scan Pulse Oximetry 98 Oxygen Delivery Method Room Air Body Fat 60.0 Body Fat Percentage 34.0 Free Fat Mass 116.6 Muscle Mass 110.6 Visceral Mass 6.0 Water Mass 83.4 BMR 1,592 Intake Visit Reasons: (OV) PO GBP 12/08/20 Allergies No Known Allergies Allergy (Verified 02/27/23 16:04) Medication List - Last Reconciled 02/27/23 by STEVE Mtz calcium citrate-vitamin D3 315 mg-5 mcg (200 unit) 1 tab PO DAILY cholecalciferol (vitamin D3) 125 mcg PO DAILY clotrimazole 1% 1 appl topical BID iron,carbonyl-vitamin C 65 mg iron- 125 mg (Vitron-C) 1 tab PO BEDTIME pantoprazole 40 mg PO DAILY vitamin A palmitate 10,000 units PO DAILY HPI HPI Comments History of Present Illness Details This?is a?37?yo female who is s/p RYGB 12/08/2020. Presents for 2 year 3 month post op visit. Weight at last visit on 08/19/2022 was 170.4 pounds with a BMI of 27.5, weight today is 176.8 pounds, representing a 5.4 pound weight gain with a BMI today of 28.5.? No complaints of nausea, emesis, abdominal pain or reflux, or constipation. Present meal plan includes: Goal 65g protein/day 2 shakes per day one meal of solid food (protein & veg) knows she drinks too much coffee (up to 5 cups a day) and doesn't eat enough, or doesn't choose the right foods Exercise routine includes: likes to walk, sometimes walks to work has an active job Continues to use clotrimazole cream for painful rashes but they continue to recur. Continues to experience worsening of odor and fluid collecting in umbilicus; these problems have worsened due to increased sweating in hot weather over the summer. Has been using clotrimazole ointment which helps somewhat but does not completely resolve the pain or rashes. Has to wear compressive garments to hold skin in place and prevent pain and discomfort; excess skin gets in the way during exercise.?? [facility] Medical History Amenorrhea BMI 33.0-33.9,adult BMI over 35 BMI over 35 Depression Depression, major, single episode, mild Diabetes mellitus GERD (gastroesophageal reflux disease) H. pylori infection Hirsutism Hyperhidrosis Iron deficiency anemia Obesity PCOS (polycystic ovarian syndrome) Snoring Steatosis, liver Type 2 diabetes mellitus Vitamin A deficiency Vitamin B1 deficiency Vitamin B12 deficiency Vitamin D deficiency Surgical History H/O dilation and curettage History of cleft palate Hx of gastric bypass Family History Mother Diabetes Father No problems noted. Maternal Grandmother Diabetes Social History Household Members Other:: Roommates Housing: Apartment Are you a primary assisted living care manager to a significant other at home: No Do you presently have visiting nurse or other home services: No Alcohol intake: never Patient Tobacco Use Status: Former Tobacco user Tobacco use type: Cigarette Cigarette Packs Per Day: 1 Years Smoked: 10 e-Cigarette/Vaping Use: Never Used Second Hand Smoke Exposure: No service: No Current occupational status: employed Current occupational exposures/hazards: No Female Reproductive History Menstrual Age of Menarche: 12 Physical Exam Vital Signs: Last Vital Signs Temp 98.5 F 02/27/23 16:01 Pulse 77 02/27/23 16:01 BP 133/79 02/27/23 16:01 Pulse Ox 98 02/27/23 16:01 Oxygen Delivery Method Room Air 02/27/23 16:01 BMI result Body Mass Index 28.5 Const General: cooperative, comfortable and no acute distress Orientation/consciousness: patient oriented x3 GI Other: soft, nontender, nondistended, incisions well healed, no hernia, no masses Grade II pannus Neuro General: patient oriented x3 Assessment & Plan Assessment & Plan (1) Excess skin: Code(s): L98.7 - Excessive and redundant skin and subcutaneous tissue (2) Overweight: Code(s): E66.3 - Overweight (3) S/P gastric bypass: Code(s): Z98.84 - Bariatric surgery status Plan Suggested using protein shake to add to coffee instead of caramel swirl. Discussed that her frequent coffee consumption plus lack of nutrition will likely result in complications especially after a bypass. Vitamin refills provided per pt request. Pt has ongoing painful rashes of excess skin of abdomen and requires the use of special clothing to avoid discomfort. Rashes are refractory to topical treatment.?In addition, pt experiences limitation of range of motion due to discomfort from the excess skin, including during exercise which is necessary to maintain her weight loss. Pt would benefit from definitive treatment of panniculectomy. RTC 3 months with me to monitor weight loss, will also set up meeting with RD to discuss ideal meal plan. Patient is overweight and with ongoing issues of excess skin, and is not considered stable at this time. I spent a total of 30 minutes reviewing/updating records, examining the patient and counseling the patient on weight management as detailed above. Orders: Orders Vitamin B12 and Folate Today - Bariatric surgery status Comprehensive Met. Panel Today - Bariatric surgery status C Reactive Protein Today - Bariatric surgery status Ferritin Today - Bariatric surgery status Hemoglobin A1c Today - Bariatric surgery status Insulin Today - Bariatric surgery status IRON PROFILE Today - Bariatric surgery status Lipid Panel Today - Bariatric surgery status PTHI Today - Bariatric surgery status TSH reflex Free T4 Today - Bariatric surgery status Vitamin A Today - Bariatric surgery status Vitamin B1 Today - Bariatric surgery status Vitamin D 25-OH Total Today - Bariatric surgery status Zinc Today - Bariatric surgery status Complete Blood Count Auto Diff Today 84 - Bariatric surgery status Medications: Refilled calcium citrate-vitamin D3 315 mg-5 mcg (200 unit) 1 tab PO DAILY 30 tabs 5RF cholecalciferol (vitamin D3) 125 mcg PO DAILY 90 caps 3RF iron,carbonyl-vitamin C 65 mg iron- 125 mg (Vitron-C) 1 tab PO BEDTIME 60 tabs 3RF vitamin A palmitate 10,000 units PO DAILY 90 caps 3RF Coding Level of Care Code Est Pt Level 4 (79309) Diagnoses Excess skin L98.7 Overweight E66.3 S/P gastric bypass Z84
[2023-02-27 16:01] VITALS: BP 133/79; PULSE 77; TEMP 36.9; O2SAT 98; BMI 28.5
== END 2023-02-27 16:21 | disposition home or self-care (01) ==
PROVIDERS: PCP Internal Medicine; Visit Provider Physician Assistant Surgical
DX: L98.7 Excessive and redundant skin and subcutaneous tissue (principal); E66.3 Overweight; Z68.28 Body mass index [BMI] 28.0-28.9, adult; Z98.84 Bariatric surgery status
CPT/HCPCS: 99214

== ENCOUNTER → 2023-02-27 15:52 | Outpatient (BNVA) | payer OTHER, SELFPAY | PROVIDERS: PCP Internal Medicine; Visit Provider Physician Assistant Surgical | DX: E66.3 Overweight (principal); Z68.28 Body mass index [BMI] 28.0-28.9, adult; L98.7 Excessive and redundant skin and subcutaneous tissue; Z98.84 Bariatric surgery status | CPT/HCPCS: 99212 ==

== ENCOUNTER 2023-03-02 10:30 | Outpatient (AMB) | payer OTHER, SELFPAY ==
--- NOTE | 2023-03-02 10:31 | MHC.AMNUTRGE ---
Intake Intake Visit Reasons: VIDEO PO [facility] 12/08/20 Allergies No Known Allergies Allergy (Verified 02/27/23 16:04) HPI Nutrition Presentation Details [facility] 12/08/20 Patient referred to discuss post bariatric diet recommendations Diet Assmnt Details Patient just met with Anupama WILSON 3 days ago. She had fallen off of a high protein diet for a while due to stress and chaotic work schedule. Currently she plans to begin 3 protein shakes per day- 30 g of protein each. Plus her 1 meal, which is usually whatever her partner cooks for dinner. Vitamins: She stopped taking the celebrate and instead is taking individual calcium, vitamin-D, iron, vitamin A Hydration: Is drinking water, but patient states probably not enough Dietary counseling reduction Diagnosis Nutrition problem #1 overweight/obesity As related to (etiology) #1 excess energy intake and physical inactivity As evidenced by (sign/symptom) #1 high BMI Monitoring/Goals Nutrition problem monitoring total energy intake, level of knowledge/skill, total PRO intake, total CHO intake, weight and oral fluids Outcome progress verbalized understanding Learning/Education Readiness to learn fair Most Recent Diabetes Results: Cholesterol 161 mg/dL 08/18/22 HDL Cholesterol 43 mg/dL 08/18/22 Triglycerides 121 mg/dL 08/18/22 Creatinine 0.82 mg/dL (0.5-1.4) 08/18/22 Blood Urea Nitrogen 12 mg/dL (9-16) 08/18/22 Sodium 141 mmol/L (135-145) 08/18/22 Potassium 4.9 mmol/L (3.3-5.1) 08/18/22 Chloride 107 mmol/L (96-108) 08/18/22 Carbon Dioxide 28 mmol/L (22-29) 08/18/22 Calcium 9.5 mg/dL (8.4-10.2) 08/18/22 AST 23 U/L (5-31) 08/18/22 ALT 19 U/L (0-31) 08/18/22 Total Protein 7.5 g/dL (6.5-8.0) 08/18/22 Albumin 4.1 g/dL (3.5-5.0) 08/18/22 [facility] Medical History Amenorrhea BMI 33.0-33.9,adult BMI over 35 BMI over 35 Depression Depression, major, single episode, mild Diabetes mellitus GERD (gastroesophageal reflux disease) H. pylori infection Hirsutism Hyperhidrosis Iron deficiency anemia Obesity PCOS (polycystic ovarian syndrome) Snoring Steatosis, liver Type 2 diabetes mellitus Vitamin A deficiency Vitamin B1 deficiency Vitamin B12 deficiency Vitamin D deficiency Surgical History H/O dilation and curettage History of cleft palate Hx of gastric bypass Family History Mother Diabetes Father No problems noted. Maternal Grandmother Diabetes Social History Household Members Other:: Roommates Housing: Apartment Are you a primary intensive care nurse to a significant other at home: No Do you presently have visiting nurse or other home services: No Alcohol intake: never Patient Tobacco Use Status: Former Tobacco user Tobacco use type: Cigarette Cigarette Packs Per Day: 1 Years Smoked: 10 e-Cigarette/Vaping Use: Never Used Second Hand Smoke Exposure: No service: No Current occupational status: employed Current occupational exposures/hazards: No Female Reproductive History Menstrual Age of Menarche: 12 Assessment & Plan Assessment & Plan (1) S/P gastric bypass: Code(s): Z98.84 - Bariatric surgery status (2) Obesity (BMI 30-39.9): Code(s): E66.9 - Obesity, unspecified Patient Instructions: Patient will continue three 30g protein shakes per day +1 small meal (protein and vegetables, or Wolof yogurt). Recommended restarting celebrate bariatric vitamin, . Vitamin A and iron until retested - as these are present celebrate vitamin. adequate hydration. She will follow up with Anupama as scheduled in May and encouraged communication with office as needed Telehealth Telehealth Location of provider rendering services: practice address Location of patient: address on file Patient Identification confirmed using: Name, : Yes Telehealth method: video Patient verbally consented to treatment: Yes Patient verbally consented to billing insurance company: Yes Patient informed of any privacy concerns related to visit: Yes Minutes spent on Phone/Video with Pt.: 15 Coding Level of Care Code Nutr Indiv Subseq ([id number]) Diagnoses S/P gastric bypass Z98.84 Obesity (BMI 30-39.9) E66.9 Time Spent (min) 15
== END 2023-03-02 11:00 | disposition home or self-care (01) ==
LOC: HO.HBS 10:46
PROVIDERS: PCP Internal Medicine; Visit Provider Dietitian, Registered
DX: Z98.84 Bariatric surgery status (principal); E66.9 Obesity, unspecified

== ENCOUNTER → 2023-03-02 10:30 | Outpatient (BNVA) | payer OTHER, SELFPAY | PROVIDERS: PCP Internal Medicine; Visit Provider Dietitian, Registered | DX: E66.9 Obesity, unspecified (principal); E11.9 Type 2 diabetes mellitus without complications; Z98.84 Bariatric surgery status; Z71.3 Dietary counseling and surveillance | CPT/HCPCS: 97803 ==

== ENCOUNTER 2024-01-31 14:19 | Outpatient (AMB) | payer OTHER, SELFPAY ==
--- NOTE | 2024-01-31 14:14 | MHC.OFFVISWM ---
VS Expanded 01/31/24 14:16 Height 5 ft 6 in Weight 187 lb 2 oz BMI 30.2 Intake Visit Reasons: (TV) PO GBP 12/08/20 Allergies No Known Allergies Allergy (Verified 02/27/23 16:04) Medication List - Last Reconciled 01/31/24 by STEVE Mtz calcium citrate-vitamin D3 315 mg-5 mcg (200 unit) 1 tab PO DAILY cholecalciferol (vitamin D3) 125 mcg PO DAILY clotrimazole 1% 1 appl topical BID iron,carbonyl-vitamin C 65 mg iron- 125 mg (Vitron-C) 1 tab PO BEDTIME pantoprazole 40 mg PO DAILY vitamin A palmitate 10,000 units PO DAILY HPI Comments Details: This?is a?38?yo female who is s/p RYGB 12/08/2020. Presents for 3 year post op visit. Pt recently had a baby, now 3 months old. Not currently . No complaints of nausea, emesis, abdominal pain or reflux, or constipation. Present meal plan includes: Pure protein powder with almond milk Exercise routine includes: can walk outside with [employer] [facility] Medical History Amenorrhea BMI 33.0-33.9,adult BMI over 35 BMI over 35 Depression Depression, major, single episode, mild Diabetes mellitus GERD (gastroesophageal reflux disease) H. pylori infection Hirsutism Hyperhidrosis Iron deficiency anemia Obesity PCOS (polycystic ovarian syndrome) Snoring Steatosis, liver Type 2 diabetes mellitus Vitamin A deficiency Vitamin B1 deficiency Vitamin B12 deficiency Vitamin D deficiency Surgical History H/O dilation and curettage History of cleft palate Hx of gastric bypass Family History Mother Diabetes Father No problems noted. Maternal Grandmother Diabetes Social History Household Members Other:: Roommates Housing: Apartment Are you a primary rn care transition to a significant other at home: No Do you presently have visiting nurse or other home services: No Alcohol intake: never Patient Tobacco Use Status: Former Tobacco user Tobacco use type: Cigarette Cigarette Packs Per Day: 1 Years Smoked: 10 e-Cigarette/Vaping Use: Never Used Second Hand Smoke Exposure: No service: No Current occupational status: employed Current occupational exposures/hazards: No Female Reproductive History Menstrual Age of Menarche: 12 Telehealth Telehealth Telehealth Platform: Telephone Location of provider rendering services: practice address Location of patient: address on file Patient Identification confirmed using: Name, : Yes Telehealth method: voice only Patient verbally consented to treatment: Yes Patient verbally consented to billing insurance company: Yes Patient informed of any privacy concerns related to visit: Yes Minutes spent on Phone/Video with Pt.: 14 Assessment & Plan Assessment & Plan (1) Overweight: Code(s): E66.3 - Overweight Category: Medical (2) Excess skin: Code(s): L98.7 - Excessive and redundant skin and subcutaneous tissue Category: Medical (3) S/P gastric bypass: Code(s): Z98.84 - Bariatric surgery status Category: Surgical Plan Pt to start new meal plan: Pure protein shake with one scoop in 8oz UAM Pure protein shake with half scoop in 8oz UAM 20g protein bar Meal of 4-5f protein, 4-5f salad/veg Exercise- walking with stroller daily Labs previously ordered, pt to have drawn this month. RTC 6 weeks. Plan texted to pt along with protein bar options handout and I encouraged her to reach out between appts with any questions. Patient is obese and is not considered stable at this time. I spent a total of 30 minutes reviewing/updating records, examining the patient and counseling the patient on weight management as detailed above.
[2024-01-31 14:16] VITALS: BMI 30.2
== END 2024-01-31 14:33 | disposition home or self-care (01) ==
LOC: HO.HBS 14:19
PROVIDERS: PCP Internal Medicine; Visit Provider Physician Assistant Surgical
DX: E66.3 Overweight (principal); L98.7 Excessive and redundant skin and subcutaneous tissue; Z98.84 Bariatric surgery status
CPT/HCPCS: 99214

== ENCOUNTER → 2024-01-31 14:19 | Outpatient (BNVA) | payer OTHER, SELFPAY | PROVIDERS: PCP Internal Medicine; Visit Provider Physician Assistant Surgical ==

== ENCOUNTER 2024-03-19 13:09 | Outpatient (AMB) | payer OTHER, SELFPAY ==
--- NOTE | 2024-03-19 13:05 | A.OFFVIS_ITS ---
VS Expanded 03/19/24 13:16 Height 5 ft 6 in Weight 185 lb BMI 29.9 Intake Visit Reasons: TV PO GBP 12/08/20 Allergies No Known Allergies Allergy (Verified 02/27/23 16:04) Medication List - Last Reconciled 03/19/24 by STEVE Mtz calcium citrate-vitamin D3 315 mg-5 mcg (200 unit) 1 tab PO DAILY cholecalciferol (vitamin D3) 125 mcg PO DAILY clotrimazole 1% 1 appl topical BID iron,carbonyl-vitamin C 65 mg iron- 125 mg (Vitron-C) 1 tab PO BEDTIME pantoprazole 40 mg PO DAILY vitamin A palmitate 10,000 units PO DAILY HPI Comments Details: This?is a?39?yo female who is s/p RYGB 12/08/2020. Presents for 3 year 4 month post op visit. Weight at last visit on 01/31/2024 was 187.2 pounds with a BMI of 30.2, weight today is 185 pounds, representing a 2 pound weight loss with a BMI today of 29.9.? No complaints of nausea, emesis, abdominal pain or reflux, or constipation. Present meal plan includes: Pure Protein shake 20g protein bar Meal of 4-5f protein, 4-5f salad/veg however pt reports that she has difficulty tolerating sucralose Exercise- walking with stroller daily PFSH Medical History Amenorrhea BMI 33.0-33.9,adult BMI over 35 BMI over 35 Depression Depression, major, single episode, mild Diabetes mellitus GERD (gastroesophageal reflux disease) H. pylori infection Hirsutism Hyperhidrosis Iron deficiency anemia Obesity PCOS (polycystic ovarian syndrome) Snoring Steatosis, liver Type 2 diabetes mellitus Vitamin A deficiency Vitamin B1 deficiency Vitamin B12 deficiency Vitamin D deficiency Surgical History H/O dilation and curettage History of cleft palate Hx of gastric bypass Family History Mother Diabetes Father No problems noted. Maternal Grandmother Diabetes Social History Household Members Other:: Roommates Housing: Apartment Are you a primary care management assistant to a significant other at home: No Do you presently have visiting nurse or other home services: No Alcohol intake: never Patient Tobacco Use Status: Former Tobacco user Tobacco use type: Cigarette Cigarette Packs Per Day: 1 Years Smoked: 10 e-Cigarette/Vaping Use: Never Used Second Hand Smoke Exposure: No service: No Current occupational status: employed Current occupational exposures/hazards: No Female Reproductive History Menstrual Age of Menarche: 12 Physical Exam Vital Signs: BMI result Body Mass Index 29.9 Telehealth Telehealth Telehealth Platform: Telephone Location of provider rendering services: practice address Location of patient: address on file Patient Identification confirmed using: Name, : Yes Telehealth method: voice only Patient verbally consented to treatment: Yes Patient verbally consented to billing insurance company: Yes Patient informed of any privacy concerns related to visit: Yes Minutes spent on Phone/Video with Pt.: 14 Assessment & Plan Assessment & Plan (1) Overweight: Code(s): E66.3 - Overweight Category: Medical (2) S/P gastric bypass: Code(s): Z98.84 - Bariatric surgery status Category: Surgical Plan New meal plan: 2 [place] shakes, each with 2 scoops powder in 8oz UAM 1 [place] bar 1 meal 5-6f protein, 4-5f salad/veg Labs reordered, pt to have drawn before next appt. RTC 6 weeks for telehealth visit. I spent a total of 30 minutes reviewing/updating records, examining the patient and counseling the patient on weight management as detailed above. Orders: Orders Insulin Today Z.84 - Bariatric surgery status Hemoglobin A1c Today .84 - Bariatric surgery status Comprehensive Met. Panel Today .84 - Bariatric surgery status C Reactive Protein Today Z.84 - Bariatric surgery status Vitamin A Today Z.84 - Bariatric surgery status Ferritin Today Z.84 - Bariatric surgery status Complete Blood Count Auto Diff Today Z.84 - Bariatric surgery status Lipid Panel Today .84 - Bariatric surgery status IRON PROFILE Today Z.84 - Bariatric surgery status Vitamin B12 and Folate Today Z.84 - Bariatric surgery status Zinc Today Z98.84 - Bariatric surgery status Vitamin B1 Today Z.84 - Bariatric surgery status TSH reflex Free T4 Today Z.84 - Bariatric surgery status Vitamin D 25-OH Total Today Z98.84 - Bariatric surgery status
[2024-03-19 13:16] VITALS: BMI 29.9
== END 2024-03-19 13:21 | disposition home or self-care (01) ==
LOC: HO.HBS 13:09
PROVIDERS: PCP Internal Medicine; Visit Provider Physician Assistant Surgical
DX: E66.3 Overweight (principal); Z68.29 Body mass index [BMI] 29.0-29.9, adult; Z98.84 Bariatric surgery status
CPT/HCPCS: 99214; G2211

== ENCOUNTER → 2024-03-19 13:09 | Outpatient (BNVA) | payer OTHER, SELFPAY | PROVIDERS: PCP Internal Medicine; Visit Provider Physician Assistant Surgical ==